=== PATIENT | female | born 1935 | race Caucasian/White ===

== ENCOUNTER → 2016-09-07 | Outpatient (CLI) | payer MEDICARE, OTHER ==
--- NOTE | 2016-09-07 16:25 | MR ---
EXAM DATE: 09/07/16 PATIENT'S AGE: 81 Patient: ILSA MURO Facility: [place], [place] : 1935 Study: MRI Shoulder Right [id number]/26/2017 10:14:58 AM Ordering Physician: Destin Irizarry Final Report: HISTORY: Right shoulder pain. Technique: Axial, sagittal oblique and coronal oblique T1, proton density and T2 fat-sat images were obtained of the right shoulder without contrast administration. Comparison: Radiographs 03/31/2016. Findings: Rotator cuff: There is full-thickness supraspinatus tendon tearing and high- grade partial to full-thickness infraspinatus tendon tearing with combined area of tearing measuring approximately 4-4.5 cm anterior/posterior by 2 cm medial/ lateral extent. There is mild supraspinatus and mild to moderate infraspinatus muscle atrophy. The distal teres minor tendon is intact. Teres minor muscle mass is maintained. Mild distal subscapularis tendinosis. Subscapularis muscle mass is maintained. . AC joint and coracoacromial arch: Advanced AC joint degenerative arthrosis. Coracoclavicular ligament is intact. There is type 2 acromial morphology. Slight spurring of the anterior lateral acromion. No os acromiale. Slight lateral downward sloping and anterior downward sloping of the acromion. The acromiohumeral interval measures approximately 5 mm. Subacromial-subdeltoid bursal fluid is nonspecific in the setting of full-thickness rotator cuff tear. The subcoracoid interval measures 9 mm. . Biceps-labral complex: Long head of the biceps tendon is intact. There is no subluxation or dislocation of the tendon from the bicipital groove nor is there significant tearing of the long head of the biceps tendon. Glenoid labrum is within normal limits for patient age. . Glenohumeral joint space: The articular cartilage assessment is mildly limited by motion artifact. Mild thinning of the articular cartilage is present. No focal defect. No intra-articular joint body. No significant malalignment. . Bones and soft tissues: No acute fracture. No avascular necrosis. No abnormality within the suprascapular or spinoglenoid notch nor within the quadrilateral space. Impression: 1. Full-thickness distal supraspinatus tendon tearing and high-grade partial to full-thickness infraspinatus tendon tearing, right shoulder. Mild supraspinatus and mild to moderate infraspinatus muscle atrophy. 2. Mild distal subscapularis tendinosis. 3. Advanced AC joint degenerative arthrosis. 4. Slight anterolateral downward sloping of the acromion. 5. Subacromial-subdeltoid bursal fluid is nonspecific in the setting of full- thickness rotator cuff tear. Dictated by Cas Kim MD @ Sep 07 2016 2:40PM (Electronic Signature) Report Signed by Proxy and Original Signed Document filed in the Medical Record. KENNY
== END ==
LOC: MW.MRI 09:12
PROVIDERS: ATTEND Student in an Organized Health Care Education/Training Program
DX: M25.511 Pain in right shoulder (principal); S46.811A Strain of other muscles, fascia and tendons at shoulder and upper arm level, right arm, initial encounter; M19.011 Primary osteoarthritis, right shoulder
CPT/HCPCS: 73221-26-RT; 73221-RT

== ENCOUNTER 2016-10-29 12:51 | Emergency (ER) | payer MEDICARE, OTHER ==
[2016-10-29] MEDS ORDERED: Sodium Chloride 0.9% 1,000 ML IV ONE (13:19)
[2016-10-29 14:12] LABS: CHLORIDE,CL 104 mmol/L (98-110); SODIUM,NA 139 mmol/L (136-146)
--- NOTE | 2016-10-29 15:28 | EDM.PDOC ---
ED HPI GENERAL MEDICAL PROBLEM - General Chief Complaint: Genitourinary Problem Stated Complaint: BLADDER INFECTION Time Seen by Provider: 10/29/16 13:15 Source of Information: Reports: Patient History Limitations: Reports: No Limitations - History of Present Illness INITIAL COMMENTS - FREE TEXT/NARRATIVE: History of present illness: 81-year-old female coming in with complaints of blood in her urine. Patient indicates that this started a couple days ago and has gotten progressively worse. Patient indicates she does have some back pain which is effusion in her back so she cannot differentiate if this is worsening pain in her back or that if it's just the same pain with an exacerbation. Review of systems: As per history of present illness and below otherwise all systems reviewed and negative. Past medical history: As per history of present illness and as reviewed below otherwise noncontributory. Surgical history: As per history of present illness and as reviewed below otherwise noncontributory. Social history: No reported history of drug or alcohol abuse. Family history: As per history of present illness and as reviewed below otherwise noncontributory. Physical exam: HEENT: Atraumatic, normocephalic, pupils reactive, negative for conjunctival pallor or scleral icterus, mucous membranes moist, throat clear, neck supple, nontender, trachea midline. Lungs: Clear to auscultation, breath sounds equal bilaterally, chest nontender. Heart: S1S2, regular, negative for clicks, rubs, or JVD. Abdomen: Soft, nondistended, nontender. Negative for masses or hepatosplenomegaly. Positive for costovertebral tenderness. Pelvis: Stable nontender. Genitourinary: Deferred. Rectal: Deferred. Extremities: Atraumatic, negative for cords or calf pain. Neurovascular unremarkable. Neuro: Awake, alert, oriented. Cranial nerves II through XII unremarkable. Cerebellum unremarkable. Motor and sensory unremarkable throughout. Exam nonfocal. Global assessment is benign save the subjective complaint noted in the history of present illness. Urine sample given with mike blood. UTI versus stones Diagnostics: [CBC, CMP, UA, CT without contrast] Therapeutics: [] Impression: [UTI] Plan: [Antibiotic] Definitive disposition and diagnosis as appropriate pending reevaluation and review of above. urinary area Pain Score (Numeric/FACES): 1 - Related Data Allergies Allergy/AdvReac Type Severity Reaction Status Date / Time acetaminophen [From [place]] Allergy Agitation Verified 10/29/16 13:09 cefaclor [Cefaclor] Allergy Rash Verified 10/29/16 13:09 celecoxib [From Celebrex] Allergy Rash Verified 10/29/16 13:09 hydrocodone bitartrate Allergy Agitation Verified 10/29/16 13:09 [From [place]] levofloxacin Allergy Other Verified 10/29/16 13:09 tramadol Allergy Hallucinati Verified 10/29/16 13:09 ons Home Meds: Home Meds HCTZ/Triamterene [Maxzide 25-37.5 MG] 0.5 tab PO DAILY 05/15/14 [History] Metoprolol Tartrate 50 mg PO BID 05/15/14 [History] Potassium Chloride 10 meq PO BID 05/15/14 [History] Aspirin [Aspirin EC] 325 mg PO BID #70 tablet.dr 07/11/15 [Rx] Docusate Sodium [Colace] 100 mg PO BID #30 capsule 07/11/15 [Rx] Acetaminophen [Tylenol] 650 mg PO Q4H PRN #0 tablet 07/16/15 [Rx] Nitrofurantoin Monohyd/M-Cryst [Macrobid 100 mg Capsule] 100 mg PO BID #20 capsule 10/29/16 [Rx] Past Medical History HEENT History: Reports: Hard of Hearing, Impaired Vision Other HEENT History: wears glasses, has bilateral hearing aides Cardiovascular History: Reports: High Cholesterol, Hypertension Respiratory History: Reports: Bronchitis, Recurrent Gastrointestinal History: Reports: None Genitourinary History: Reports: None 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: Musculoskeletal History: Reports: None Other Musculoskeletal History: states has bursitis in legs Neurological History: Reports: None Psychiatric History: Reports: None Endocrine/Metabolic History: Reports: Osteoporosis Hematologic History: Reports: None Immunologic History: Reports: None Oncologic (Cancer) History: Reports: Breast Dermatologic History: Reports: None - Infectious Disease History Infectious Disease History: Reports: Chicken Pox, Measles - Past Surgical History Head Surgeries/Procedures: Reports: None HEENT Surgical History: Reports: Cataract Surgery Respiratory Surgical History: Reports: Other (See Below) GI Surgical History: Reports: None Female Surgical History: Reports: Hysterectomy Other Female Surgeries/Procedures: right breast lumpectomy Endocrine Surgical History: Reports: None Neurological Surgical History: Reports: Spinal Fusion Musculoskeletal Surgical History: Reports: Hip Replacement Oncologic Surgical History: Reports: Lumpectomy Social & Family History - Family History Family Medical History: Noncontributory Cardiac: Reports: Hypertension Oncologic: Reports: Other (See Below) Other Oncologic Family History: brother, type unknown - Tobacco Use Smoking Status *Q: Current Every Day Smoker Years of Tobacco use: 70 Packs/Tins Daily: 0.6 Used Tobacco, but Quit: No Month Tobacco Last Used: 04/27 Second Hand Smoke Exposure: Yes - Caffeine Use Caffeine Use: Reports: Coffee - Alcohol Use Days Per Week of Alcohol Use: 2 Number of Drinks Per Day: 2 Total Drinks Per Week: 4 - Recreational Drug Use Recreational Drug Use: No Drug Use in Last 12 Months: No ED ROS GENERAL - Review of Systems Review Of Systems: See Below (History of present illness) ED EXAM, GI/ABD - Physical Exam Exam: See Below (See history of present illness) Course - Vital Signs Last Recorded V/S: Last Vital Signs Temp 35.9 C 10/29/16 13:09 Pulse 75 10/29/16 14:19 Resp 16 10/29/16 14:19 BP 118/58 L 10/29/16 14:19 Pulse Ox 92 L 10/29/16 14:19 - Orders/Labs/Meds Orders: Active Orders 24 hr Category Date Time Status Abdomen Pelvis wo Cont [CT] Stat Exams 10/29/16 13:19 Ordered Labs: Laboratory Tests 10/29/16 10/29/16 10/29/16 Range/Units 13:21 13:35 13:35 WBC 10.84 (4.0-11.0) K/uL RBC 4.36 (4.30-5.90) M/uL Hgb 14.2 (12.0-16.0) g/dL Hct 43.1 (36.0-46.0) % MCV 98.9 H (80.0-98.0) fL MCH 32.6 H (27.0-32.0) pg MCHC 32.9 (31.0-37.0) g/dL RDW Std Deviation 47.5 (28.0-62.0) fl RDW Coeff of [place] 13 (11.0-15.0) % Plt Count 355 (150-400) K/uL MPV 9.30 (7.40-12.00) fL Neut % (Auto) 73.2 (48.0-80.0) % Lymph % (Auto) 18.0 (16.0-40.0) % [place] % (Auto) 6.4 (0.0-15.0) % Eos % (Auto) 2.0 (0.0-7.0) % Baso % (Auto) 0.4 (0.0-1.5) % Neut # (Auto) 7.9 H (1.4-5.7) K/uL Lymph # (Auto) 2.0 (0.6-2.4) K/uL [place] # (Auto) 0.7 (0.0-0.8) K/uL Eos # (Auto) 0.2 (0.0-0.7) K/uL Baso # (Auto) 0.0 (0.0-0.1) K/uL Nucleated RBC % 0.0 /100WBC Nucleated RBCs # 0 K/uL Sodium 139 (136-146) mmol/L Potassium 3.8 (3.5-5.1) mmol/L Chloride 104 (98-110) mmol/L Carbon Dioxide 24 (21-31) mmol/L BUN 25 H (6.0-23.0) mg/dL Creatinine 0.9 (0.6-1.5) mg/dL Est Cr Clr Drug Dosing 43.05 mL/min Estimated GFR (MDRD) > 60.0 ml/min Glucose 88 (60-110) mg/dL Calcium 9.8 (8.8-10.8) mg/dL Total Bilirubin 0.3 (0.1-1.5) mg/dL AST 17 (5-40) IU/L ALT 12 (8-54) IU/L Alkaline Phosphatase 66 (40-150) Total Protein 7.5 (6.0-8.0) g/dL Albumin 4.5 (3.4-4.8) g/dL Globulin 3.0 (2.0-3.5) g/dL Albumin/Globulin Ratio 1.5 (1.3-2.8) Urine Color [place] Urine Appearance BLOODY Urine pH 5.5 (5.0-8.0) Ur Specific [place] 1.020 (1.001-1.035) Urine Protein 100 (NEGATIVE) mg/dL Urine Glucose (UA) NEGATIVE (NEGATIVE) mg/dL Urine Ketones TRACE H (NEGATIVE) mg/dL Urine Occult Blood LARGE H (NEGATIVE) Urine Nitrite POSITIVE H (NEGATIVE) Urine Bilirubin SMALL H (NEGATIVE) Urine Ictotest NEGATIVE Urine Urobilinogen 1.0 (<2.0) EU/dL Ur Leukocyte Esterase LARGE (NEGATIVE) Urine RBC TOO NUMEROUS TO CT (0-2/HPF) Urine WBC 120-150 (0-5/HPF) Ur Epithelial Cells FEW (NONE-FEW) Urine Bacteria FEW (NEGATIVE) Meds: Medications Discontinued Medications Generic Name Dose Route Start Last Admin Trade Name [place] PRN Reason Stop Dose Admin Sodium Chloride 1,000 mls @ 999 mls/hr 10/29/16 13:19 10/29/16 14:18 Normal Saline IV 10/29/16 14:19 999 mls/hr STAT ONE Administration Departure - Departure Time of Disposition: 15:27 Disposition: Home, Self-Care 01 Condition: Good Clinical Impression: UTI, Urinary tract infectious disease - Discharge Information Prescriptions: Nitrofurantoin Monohyd/M-Cryst [Macrobid 100 mg Capsule] 100 mg PO BID #20 capsule Instructions: Urinary Tract Infection, Adult, [id number] Forms: ED Department Discharge Additional Instructions: The following information is given to patients seen in the emergency department who are being discharged to home. This information is to outline your options for follow-up care. We provide all patients seen in our emergency department with a follow-up referral. The need for follow-up, as well as the timing and circumstances, are variable depending upon the specifics of your emergency department visit. If you don't have a primary care physician on staff, we will provide you with a referral. We always advise you to contact your personal physician following an emergency department visit to inform them of the circumstance of the visit and for follow-up with them and/or the need for any referrals to a consulting specialist. The emergency department will also refer you to a specialist when appropriate. This referral assures that you have the opportunity for follow-up care with a specialist. All of these measure are taken in an effort to provide you with optimal care, which includes your follow-up. Under all circumstances we always encourage you to contact your private physician who remains a resource for coordinating your care. When calling for follow-up care, please make the office aware that this follow-up is from your recent emergency room visit. If for any reason you are refused follow-up, please contact the [facility] Emergency Department at and asked to speak to the emergency department charge nurse. Take medication as directed While the primary care provider in 1-2 days Return to ED as needed as discussed - My Orders Last 24 Hours: My Active Orders 10/29/16 13:19 Abdomen Pelvis wo Cont [CT] Stat - Assessment/Plan Last 24 Hours: My Active Orders 10/29/16 13:19 Abdomen Pelvis wo Cont [CT] Stat
[2016-10-29 15:48] VITALS: BP 142/65
--- NOTE | 2016-10-31 11:51 | CT ---
EXAM DATE: 10/29/16 PATIENT'S AGE: 81 Patient: ILSA MURO Facility: [place], [place] Site . Site : 1935 Study: CT Abdomen/Pelvis [id number] 2:18:14 PM Ordering Physician: Doctor Peralta Final Report: Indication: Burning. Technique: Contiguous axial images were obtained from the domes of the diaphragm through the pubic symphysis. Intravenous and oral contrast were not administered as the study was performed according to stone protocol. 3D rendering, including image post processing was performed on an independent work station. Comparison: None. Findings: There is no hydronephrosis nor hydroureter. No stones are identified in the unenhanced kidneys, ureters or urinary bladder. However, beam hardening artifact from a right hip prosthesis limits evaluation of the lower pelvis. The unenhanced liver, gallbladder, spleen, adrenal glands and pancreas are unremarkable. There is no abdominal or pelvic ascites. Scattered diverticula are noted in the descending colon and sigmoid colon. Marked atherosclerotic changes are noted the abdominal aorta and common iliac arteries but there is no aneurysmal dilatation. Degenerative changes are noted of the lumbar spine and sacroiliac joints. Visualized lower lungs are unremarkable. Impression: 1. No CT evidence of hydronephrosis, hydroureter or stones in the kidneys, ureter or urinary bladder. 2. Diverticulosis without CT evidence of diverticulitis. Please note that all CT scans at this facility use dose modulation, iterative reconstruction, and/or weight-based dosing when appropriate to reduce radiation dose to as low as reasonably achievable. Dictated by Sarah Aaron MD @ Oct 29 2016 3:07PM (Electronic Signature) Report Signed by Proxy. [facility] HOSPITALJerry
== END 2016-10-29 15:45 | disposition home or self-care (01) ==
LOC: MW.ED 12:51
DX: N39.0 Urinary tract infection, site not specified (principal); H54.7 Unspecified visual loss; E78.00 Pure hypercholesterolemia, unspecified; I10 Essential (primary) hypertension; M19.90 Unspecified osteoarthritis, unspecified site; F17.210 Nicotine dependence, cigarettes, uncomplicated; Z88.8 Allergy status to other drugs, medicaments and biological substances; Z88.5 Allergy status to narcotic agent; Z79.899 Other long term (current) drug therapy; Z79.82 Long term (current) use of aspirin; Z98.49 Cataract extraction status, unspecified eye; Z96.643 Presence of artificial hip joint, bilateral; Z88.1 Allergy status to other antibiotic agents; Z90.710 Acquired absence of both cervix and uterus
CPT/HCPCS: 74176; 80053; 81001; 85025; 96360; 99284; J7040

== ENCOUNTER 2019-07-02 18:41 | Emergency (ER) | payer MEDICARE, OTHER ==
[2019-07-02 18:52] VITALS: BP 155/54; PULSE 63
[2019-07-02] MEDS ORDERED: Diphtheria,Pertussis(Acell),Tetanus Vaccine 0.5 ML Syringe IM ONE ×2 (19:01→19:51)
--- NOTE | 2019-07-02 19:04 | EDM.PDOC ---
ED HPI GENERAL MEDICAL PROBLEM - General Chief Complaint: General Stated Complaint: EMS ARRIVAL RIB & HIP PAIN Time Seen by Provider: 07/02/19 19:01 Source of Information: Reports: Patient, EMS - History of Present Illness INITIAL COMMENTS - FREE TEXT/NARRATIVE: The patient is an 84-year-old female in assisted living who came to the ER secondary to a witnessed slip and fall. The patient slipped on the floor and fell down to her right side pinning her right arm underneath her. She could not get up but she was able to be helped up and is able to stand. She did not hit her head. She feels sore all over but her main complaints are that her right hand hurts and she has a small skin tear on the dorsal aspect of her distal right forearm. She also has some right rib pain but no shortness of breath. No loss of range of motion of any of the extremities, no neck pain, no other acute complaints. right rib Pain Score (Numeric/FACES): 10 right wrist Pain Score (Numeric/FACES): 10 - Related Data Allergies Allergy/AdvReac Type Severity Reaction Status Date / Time acetaminophen [From [place]] Allergy Agitation Verified 05/19/18 11:42 cefaclor [Cefaclor] Allergy Rash Verified 05/19/18 11:42 celecoxib [From Celebrex] Allergy Rash Verified 05/19/18 11:42 hydrocodone bitartrate Allergy Agitation Verified 05/19/18 11:42 [From [place]] levofloxacin Allergy Other Verified 05/19/18 11:42 sulfadiazine Allergy Other Verified 07/02/19 18:49 tramadol Allergy Hallucinati Verified 05/19/18 11:42 ons Home Meds: Home Meds HCTZ/Triamterene [Maxzide 25-37.5 MG] 0.5 tab PO DAILY 05/15/14 [History] Metoprolol Tartrate 50 mg PO BID 05/15/14 [History] Potassium Chloride 10 meq PO BID 05/15/14 [History] Aspirin [Aspirin EC] 325 mg PO BID #70 tablet. 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: Musculoskeletal History: Reports: None Other Musculoskeletal History: states has bursitis in legs Neurological History: Reports: None Psychiatric History: Reports: None Endocrine/Metabolic History: Reports: Osteoporosis Hematologic History: Reports: None Immunologic History: Reports: None Oncologic (Cancer) History: Reports: Breast Dermatologic History: Reports: None - Infectious Disease History Infectious Disease History: Reports: Measles - Past Surgical History Head Surgeries/Procedures: Reports: None HEENT Surgical History: Reports: Cataract Surgery Respiratory Surgical History: Reports: Other (See Below) GI Surgical History: Reports: None Female Surgical History: Reports: Hysterectomy Other Female Surgeries/Procedures: right breast lumpectomy Endocrine Surgical History: Reports: None Neurological Surgical History: Reports: Spinal Fusion Musculoskeletal Surgical History: Reports: Hip Replacement Oncologic Surgical History: Reports: Lumpectomy Social & Family History - Family History Family Medical History: Noncontributory Cardiac: Reports: Hypertension Oncologic: Reports: Other (See Below) Other Oncologic Family History: brother, type unknown - Tobacco Use Smoking Status *Q: Light Tobacco Smoker Years of Tobacco use: 60 Packs/Tins Daily: 0.1 - Caffeine Use Caffeine Use: Reports: Coffee - Recreational Drug Use Recreational Drug Use: No ED ROS GENERAL - Review of Systems Review Of Systems: See Below (Positive for right hand pain, positive for skin tear, negative for headache, negative for neck pain, negative for weakness, all other Positives and pertinent negatives as per HPI. All other pertinent systems were reviewed and are negative) ED EXAM, GENERAL - Physical Exam Exam: See Below Free Text/Narrative:: Constitutional: Elderly, no acute distress, Non-toxic appearance. HEENT: Normocephalic, Atraumatic, EOMI Neck: Normal range of motion, No stridor, trachea midline, no tenderness Respiratory: No respiratory distress, No tachypnea Cardiovascular: Deferred Gastrointestinal: Deferred Genital / Urinary: Deferred Musculoskeletal: All four extremities present and atraumatic with the exception of a small amount of ecchymosis and tenderness along the right fifth metacarpal , there is also a small superficial skin tear on the dorsal aspect of the distal right forearm, no wrist deformity, no tenderness, full range of motion is noted in all the joints Back: FROM Integument: Warm, Dry, Color is ethnicity appropriate, No rash. Neuro: Alert, Awake, No focal deficits noted Psych: Affect, Judgement, mood normal Course - Vital Signs Text/Narrative:: Chest and rib x-rays were reviewed and interpreted by me -no fractures, no pleural effusion, no pneumothorax or any acute pathology Right hand x-ray was interpreted by radiology as a possible fracture at the base of the fifth metacarpal which clinically is where the patient has a lot of tenderness. Ulnar gutter splint on the right hand will be placed, tetanus was updated, and the patient will be stable for discharge. Last Recorded V/S: Last Vital Signs Temp 36.6 C 07/02/19 18:49 Pulse 63 07/02/19 18:49 Resp 20 07/02/19 18:49 BP 155/54 H 07/02/19 18:49 Pulse Ox 100 07/02/19 18:49 - Orders/Labs/Meds Orders: Active Orders 24 hr Category Date Time Status Vaccines to be Administered [RC] PER UNIT ROUTINE Care 07/02/19 19:01 Active Vaccines to be Administered [RC] PER UNIT ROUTINE Care 07/02/19 19:51 Active Vaccines to be Administered [RC] PER UNIT ROUTINE Care 07/02/19 19:56 Active Meds: Medications Discontinued Medications Generic Name Dose Route Start Last Admin Trade Name Asaelq PRN Reason Stop Dose Admin Diphtheria/Tetanus/Acell Pertussis 0.5 ml 07/02/19 19:01 07/02/19 19:50 Adacel IM 07/02/19 19:02 Not Given .ONCE ONE Diphtheria/Tetanus/Acell Pertussis 0.5 ml 07/02/19 19:51 07/02/19 19:56 Boostrix IM 07/02/19 19:52 Not Given .ONCE ONE Tetanus/Diphtheria Toxoids 0.5 ml 07/02/19 19:56 07/02/19 20:02 Tenivac IM 07/02/19 19:57 0.5 ml .ONCE ONE Administration Departure - Departure Time of Disposition: 20:11 Disposition: Home, Self-Care 01 Clinical Impression: Fall, Fracture of fifth metacarpal bone of right hand, Skin tear of right upper extremity - Discharge Information Instructions: Cast or Splint Care, Adult, [id number], Skin Tear Care, Easy-to -Read, Metacarpal Fracture Referrals: Giancarlo Gaytan DO [Physician] - Forms: ED Department Discharge Sepsis Event Note - Evaluation Sepsis Screening Result: No Definite Risk - Focused Exam Vital Signs: Vital Signs Temp Pulse Resp BP Pulse Ox 07/02/19 18:49 36.6 C 63 20 155/54 H 100 Date Exam was Performed: 07/02/19 Time Exam was Performed: 20:10 - My Orders Last 24 Hours: My Active Orders 07/02/19 19:01 Vaccines to be Administered [RC] PER UNIT ROUTINE 07/02/19 19:51 Vaccines to be Administered [RC] PER UNIT ROUTINE 07/02/19 19:56 Vaccines to be Administered [RC] PER UNIT ROUTINE - Assessment/Plan Last 24 Hours: My Active Orders 07/02/19 19:01 Vaccines to be Administered [RC] PER UNIT ROUTINE 07/02/19 19:51 Vaccines to be Administered [RC] PER UNIT ROUTINE 07/02/19 19:56 Vaccines to be Administered [RC] PER UNIT ROUTINE
--- NOTE | 2019-07-02 19:45 | CR ---
Chest and right ribs: Frontal view of the chest was obtained as well as 3 views of the right ribs. Comparison: No previous study. Heart size is normal. Tortuous thoracic aorta is seen. 2 surgical clips are seen within the left AP window. Linear density is noted with the right lung base either due to scarring or atelectasis. Calcified nodule is noted within the right chest believed to represent granuloma. Lungs otherwise are clear. 2 surgical clips are seen within the right axillary region. Scattered disc space narrowing and mild scoliosis is noted within the spine with endplate spurring. No definite fracture is appreciated within the right ribs. Impression: 1. No discrete right-sided rib fracture. Nondisplaced fracture could be missed due to osteopenia. 2. Slight atelectasis or scarring within the right lung base. 3. Other findings believed to be incidental. Nothing acute is suspected. Diagnostic code #2 This report was dictated in [place] Standard Time
--- NOTE | 2019-07-02 19:45 | CR ---
Right hand: 3 views of the right hand were obtained. Comparison: No previous study. Fracture is suspected within the base of the 5th metacarpal. Alignment is anatomic as seen on this study. Mild joint space narrowing is noted off the distal navicular bone. Bony structures are slightly osteopenic. Joint space narrowing is also noted within the thumb involving the MTP joint. No additional fracture or other bony abnormality is appreciated. Impression: 1. Degenerative change. 2. Bony structures are osteopenic. 3. Nondisplaced fracture is suspected within the base of the right 5th metacarpal. Diagnostic code #3 This report was dictated in [place] Standard Time
[2019-07-02] MEDS ORDERED: Diphtheria/Tetanus Toxoids,Adult (Td) 0.5 ML Syringe IM ONE (19:56)
== END 2019-07-02 20:48 | disposition home or self-care (01) ==
LOC: MW.ED 18:41
DX: S62.306A Unspecified fracture of fifth metacarpal bone, right hand, initial encounter for closed fracture (principal); S51.811A Laceration without foreign body of right forearm, initial encounter; Z23 Encounter for immunization; I10 Essential (primary) hypertension; E78.00 Pure hypercholesterolemia, unspecified; J44.9 Chronic obstructive pulmonary disease, unspecified; F17.210 Nicotine dependence, cigarettes, uncomplicated; Z88.8 Allergy status to other drugs, medicaments and biological substances; Z88.5 Allergy status to narcotic agent; Z79.899 Other long term (current) drug therapy; Z79.82 Long term (current) use of aspirin; W01.0XXA Fall on same level from slipping, tripping and stumbling without subsequent striking against object, initial encounter
CPT/HCPCS: 29125; 71101-26-RT; 71101-RT; 73130-26-RT; 73130-RT; 90471; 90714; 99283-25

== ENCOUNTER 2020-01-18 09:52 | Inpatient (IN) | payer MEDICARE, OTHER ==
[2020-01-18] MEDS ORDERED: Meclizine 25 MG Tab PO ONE (10:00)
[2020-01-18] MEDS ORDERED: Sodium Chloride 0.9% 10 ML Syringe FLUSH PRN (10:00)
[2020-01-18] MEDS ORDERED: Sodium Chloride 0.9% 2.5 ML Syringe FLUSH PRN (10:00)
--- NOTE | 2020-01-18 10:14 | EDM.PDOC ---
ED HPI GENERAL MEDICAL PROBLEM - General Chief Complaint: Neuro Symptoms/Deficits Stated Complaint: Dizziness Time Seen by Provider: 01/18/20 09:57 Source of Information: Reports: Patient, Long Term Records History Limitations: Reports: No Limitations - History of Present Illness INITIAL COMMENTS - FREE TEXT/NARRATIVE: HISTORY AND PHYSICAL: History of present illness: Patient is an 84-year-old female who presents to the emergency room via ambulance with complaints of dizziness. Patient is a resident of an assisted living group home, otherwise is able to perform her ADLs (per patient statement). States over the past 3 days she has had dizziness when trying to sit up, especially in the morning. Dizziness is aggravated by turning her head to the right side and alleviated with rest. Patient denies any fever, chills, headache, change in vision, syncope or near syncope. Denies any weakness, confusion, slurred speech or deficits. Denies any chest pain, back pain, shortness of breath or cough. Denies any GI or symptoms. Patient has been eating and drinking appropriately. No new injury, trauma or falls. Review of systems: As per history of present illness and below otherwise all systems reviewed and negative. Past medical history: As per history of present illness and as reviewed below otherwise noncontributory. Surgical history: As per history of present illness and as reviewed below otherwise noncontributory. Social history: See social history for further information Family history: As per history of present illness and as reviewed below otherwise noncontributory. Physical exam: General: Well developed and well nourished. Alert and orientated x 3, history of dementia. Nontoxic in appearance and in no acute distress. Vital signs are s table and have been reviewed by me. Nursing notes were reviewed by me. HEENT: Atraumatic, normocephalic, pupils equal and reactive bilaterally, negative for conjunctival pallor or scleral icterus, mucous membranes moist, TMs normal bilaterally, throat clear, neck supple, nontender, trachea midline. No drooling or trismus noted. No meningeal signs. No hot potato voice noted. Lungs: Clear to auscultation, breath sounds equal bilaterally, chest nontender. Normal work of breathing, no accessory muscles used. Heart: S1S2, regular rate and rhythm without overt murmur Abdomen: Soft, nondistended, nontender. Negative for masses or hepatosplenomegaly. Negative for costovertebral tenderness. Skin: Intact, warm, dry. No lesions or rashes noted. Hematologic: No petechiae or purpra. Mucosa appropriate color and normal nail bed color and refill. Extremities: Atraumatic, moves all extremities per self without difficulty or deficits, negative for cords or calf pain. Neurovascular unremarkable. Neuro: Awake, alert, oriented. Cranial nerves II through XII unremarkable. Cerebellum unremarkable. Motor and sensory unremarkable throughout. Exam nonfocal. Notes: Patient does have a history of dementia, recently had an MRI of the brain on 01/02/2020: No evidence of acute intracranial abnormalities. Advance supratentorial white matter changes are nonspecific but statistically most related to small vessel ischemic disease. Moderate cerebral volume loss. Chronic marquez in the bilateral caudate nuclei. 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 Differential considerations include meningioma and schewannoma. No significant change on this noncontrast study. No mass-effect on the left brachium pontis. NIH: 0. GCS: 15. No suspicion of stroke. On several different occasions upon entering the patient's room she has different complaints and is verbally aggressive with staff. Nursing staff had to assist patient to bathroom as she was unable to walk by herself, assist x2. She complains of generalized weakness but states this is a normal variance for her over the past several years. On a second encounter with the patient she does not recall the staff that has been in the room with her and she wants her IV taken out and to return home. Chest x-ray shows no acute findings. Lab work is unremarkable. Patient is unable to get up out of bed without assist of 2. Nursing staff did call the [facility] who states she typically does ambulate on her own without wheelchair, cane or a walker. It was just this morning that they had went to check on her and noted she was not able to get up out of bed. That is when they called the ambulance. I did talk with the patient about how she felt she would be able to get around her apartment and she states "I do not know". I feel she needs to be admitted for reevaluation and possible placement to higher level of group home assistance. Dr Garcia was consulted on this case. Agreeable to keeping this patient for further care and management. Patient is very agitated and yelling at staff and trying to get out of bed, but is unable due to weakness. Ativan has been given now, and close 1:1 care given by nurses at this time. Diagnostics: CBC, CMP, troponin, UA, EKG, chest x-ray, Head CT Therapeutics: Meclizine, NS at 100 mls/hr Impression: BPPV Weakness Self care deficet History of dementia Plan: Inpatient admission to telemetry Definitive disposition and diagnosis as appropriate pending reevaluation and review of above. - Related Data Allergies Allergy/AdvReac Type Severity Reaction Status Date / Time acetaminophen [From [place]] Allergy Agitation Verified 01/18/20 09:57 cefaclor [Cefaclor] Allergy Rash Verified 01/18/20 09:57 celecoxib [From Celebrex] Allergy Rash Verified 01/18/20 09:57 hydrocodone bitartrate Allergy Agitation Verified 01/18/20 09:57 [From [place]] levofloxacin Allergy Other Verified 01/18/20 09:57 sulfadiazine Allergy Other Verified 01/18/20 09:57 tramadol Allergy Hallucinati Verified 01/18/20 09:57 ons Home Meds: Home Meds Metoprolol Tartrate 25 mg PO DAILY 05/15/14 [History] Potassium Chloride 10 meq PO DAILY 05/15/14 [History] Acetaminophen [Tylenol] 500 mg PO Q6H PRN 01/18/20 [History] Albuterol [Proair HFA] 2 puff INH Q4HR PRN 01/18/20 [History] Carboxymethylcellulose Sodium [Artificial Tears] 1 drop EYEBOTH Q6H PRN 01/18/20 [History] Cyanocobalamin (Vitamin B12) [Vitamin B12] 1,000 mcg PO DAILY 01/18/20 [History] Donepezil HCl 10 mg PO BEDTIME 01/18/20 [History] FLUoxetine HCl [Prozac] 20 mg PO DAILY 01/18/20 [History] Loperamide HCl [Imodium A-D] 2 mg PO DAILY PRN MDD 8MG 01/18/20 [History] Mag Hydrox/Aluminum Hyd/Simeth [Maalox Maximum Strength Susp] 30 ml PO Q6H PRN 01/18/20 [History] Magnesium Hydroxide [Milk of Magnesia] 30 ml PO DAILY PRN 01/18/20 [History] Multivitamin [Poly-Vitamin] 2 each PO DAILY 01/18/20 [History] Omeprazole 40 mg PO ACBREAKFAST 01/18/20 [History] Rosuvastatin Calcium 5 mg PO .WED 01/18/20 [History] guaiFENesin 5 ml PO Q4H PRN 01/18/20 [History] hydroCHLOROthiazide [Hydrochlorothiazide] 25 mg PO DAILY 01/18/20 [History] oxyCODONE HCl/Acetaminophen [Oxycodon-Acetaminophen 2.5-300] 1 each PO Q6H PRN 01/18/20 [History] Past Medical History HEENT History: Reports: Hard of Hearing, Impaired Vision Other HEENT History: wears glasses, has bilateral hearing aides Cardiovascular History: Reports: High Cholesterol, Hypertension Respiratory History: Reports: Bronchitis, Recurrent, COPD Gastrointestinal History: Reports: None Genitourinary History: Reports: None 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: Musculoskeletal History: Reports: None Other Musculoskeletal History: states has bursitis in legs Neurological History: Reports: None Psychiatric History: Reports: None Endocrine/Metabolic History: Reports: Osteoporosis Hematologic History: Reports: None Immunologic History: Reports: None Oncologic (Cancer) History: Reports: Breast Dermatologic History: Reports: None - Infectious Disease History Infectious Disease History: Reports: Measles - Past Surgical History Head Surgeries/Procedures: Reports: None HEENT Surgical History: Reports: Cataract Surgery Respiratory Surgical History: Reports: Other (See Below) GI Surgical History: Reports: None Female Surgical History: Reports: Hysterectomy Other Female Surgeries/Procedures: right breast lumpectomy Endocrine Surgical History: Reports: None Neurological Surgical History: Reports: Spinal Fusion Musculoskeletal Surgical History: Reports: Hip Replacement Oncologic Surgical History: Reports: Lumpectomy Social & Family History - Family History Family Medical History: Noncontributory Cardiac: Reports: Hypertension Oncologic: Reports: Other (See Below) Other Oncologic Family History: brother, type unknown - Caffeine Use Caffeine Use: Reports: Coffee ED ROS GENERAL - Review of Systems Review Of Systems: Comprehensive ROS is negative, except as noted in HPI. ED EXAM, GENERAL - Physical Exam Exam: See Below (See dictation) Course - Vital Signs Last Recorded V/S: Last Vital Signs Temp 96.7 F L 01/18/20 09:57 Pulse 66 01/18/20 12:26 Resp 16 01/18/20 12:26 BP 109/55 L 01/18/20 12:26 Pulse Ox 98 01/18/20 12:26 - Orders/Labs/Meds Orders: Active Orders 24 hr Category Date Time Status EKG Documentation Completion [RC] STAT Care 01/18/20 09:58 Active CORONAVIRUS COVID-19 ENOC [MOLEC] Stat Lab 01/18/20 12:04 Received Sodium Chloride 0.9% [Saline Flush] Med 01/18/20 10:00 Active 10 ml FLUSH ASDIRECTED PRN Sodium Chloride 0.9% [Saline Flush] Med 01/18/20 10:00 Active 2.5 ml FLUSH ASDIRECTED PRN Saline Lock Insert [OM.PC] Stat Oth 01/18/20 10:01 Ordered Medication Orders Sodium Chloride (Saline Flush) 10 ml FLUSH ASDIRECTED PRN PRN Reason: Keep Vein Open Last Admin: 01/18/20 10:18 Dose: 10 ml Documented by: SUSAN Sodium Chloride (Saline Flush) 2.5 ml FLUSH ASDIRECTED PRN PRN Reason: Keep Vein Open Last Admin: 01/18/20 10:18 Dose: 2.5 ml Documented by: SUSAN Labs: Laboratory Tests 01/18/20 01/18/20 01/18/20 Range/Units 10:15 10:15 10:40 WBC 5.75 (4.0-11.0) K/uL RBC 4.33 (4.30-5.90) M/uL Hgb 13.4 (12.0-16.0) g/dL Hct 42.3 (36.0-46.0) % MCV 97.7 (80.0-98.0) fL MCH 30.9 (27.0-32.0) pg MCHC 31.7 (31.0-37.0) g/dL RDW Std Deviation 44.9 (28.0-62.0) fl RDW Coeff of [place] 13 (11.0-15.0) % Plt Count 294 (150-400) K/uL MPV 9.10 (7.40-12.00) fL Neut % (Auto) 58.8 (48.0-80.0) % Lymph % (Auto) 29.2 (16.0-40.0) % Larue % (Auto) 7.1 (0.0-15.0) % Eos % (Auto) 4.0 (0.0-7.0) % Baso % (Auto) 0.9 (0.0-1.5) % Neut # (Auto) 3.4 (1.4-5.7) K/uL Lymph # (Auto) 1.7 (0.6-2.4) K/uL Larue # (Auto) 0.4 (0.0-0.8) K/uL Eos # (Auto) 0.2 (0.0-0.7) K/uL Baso # (Auto) 0.1 (0.0-0.1) K/uL Nucleated RBC % 0.0 /100WBC Nucleated RBCs # 0 K/uL Sodium 139 (136-145) mmol/L Potassium 4.0 (3.5-5.1) mmol/L Chloride 102 (98-107) mmol/L Carbon Dioxide 28.7 (21.0-32.0) mmol/L BUN 23 H (7.0-18.0) mg/dL Creatinine 1.1 H (0.6-1.0) mg/dL Est Cr Clr Drug Dosing 33.46 mL/min Estimated GFR (MDRD) 47.4 ml/min Glucose 97 (74-106) mg/dL Calcium 9.4 (8.5-10.1) mg/dL Total Bilirubin 0.4 (0.2-1.0) mg/dL AST 15 (15-37) IU/L ALT 17 (14-63) IU/L Alkaline Phosphatase 66 (46-116) U/L Troponin I < 0.050 (0.000-0.056) ng/mL Total Protein 7.0 (6.4-8.2) g/dL Albumin 3.7 (3.4-5.0) g/dL Globulin 3.3 (2.6-4.0) g/dL Albumin/Globulin Ratio 1.1 (0.9-1.6) Urine Color YELLOW Urine Appearance CLEAR Urine pH 6.5 (5.0-8.0) Ur Specific [place] 1.010 (1.001-1.035) Urine Protein NEGATIVE (NEGATIVE) mg/dL Urine Glucose (UA) NEGATIVE (NEGATIVE) mg/dL Urine Ketones NEGATIVE (NEGATIVE) mg/dL Urine Occult Blood NEGATIVE (NEGATIVE) Urine Nitrite NEGATIVE (NEGATIVE) Urine Bilirubin NEGATIVE (NEGATIVE) Urine Urobilinogen 0.2 (<2.0) EU/dL Ur Leukocyte Esterase NEGATIVE (NEGATIVE) Meds: Medications Generic Name Dose Route Start Last Admin Trade Name Freq PRN Reason Stop Dose Admin Sodium Chloride 10 ml 01/18/20 10:00 01/18/20 10:18 Saline Flush FLUSH 10 ml ASDIRECTED PRN Administration Keep Vein Open Sodium Chloride 2.5 ml 01/18/20 10:00 01/18/20 10:18 Saline Flush FLUSH 2.5 ml ASDIRECTED PRN Administration Keep Vein Open Discontinued Medications Generic Name Dose Route Start Last Admin Trade Name Freq PRN Reason Stop Dose Admin Lorazepam 0.25 mg 01/18/20 12:28 01/18/20 12:33 Ativan IVPUSH 01/18/20 12:29 0.25 mg ONETIME ONE Administration Lorazepam Confirm 01/18/20 12:30 Ativan Administered 01/18/20 12:31 Dose 2 mg .ROUTE .STK-MED ONE Meclizine HCl 25 mg 01/18/20 10:00 01/18/20 10:13 Antivert PO 01/18/20 10:01 25 mg ONETIME ONE Administration Departure - Departure Time of Disposition: 11:40 Disposition: Admitted As Inpatient 67 Clinical Impression: Weakness, At risk for self care deficit, History of dementia BPPV (benign paroxysmal positional vertigo) Qualifiers: Laterality: right Qualified Code(s): H81.11 - Benign paroxysmal vertigo, right ear - Discharge Information Sepsis Event Note (ED) - Focused Exam Vital Signs: Vital Signs Temp Pulse Resp BP Pulse Ox 01/18/20 10:51 78 17 101/77 96 01/18/20 10:27 71 18 160/59 H 96 01/18/20 09:57 96.7 F L 63 16 151/73 H 97 - My Orders Last 24 Hours: My Active Orders 01/18/20 09:58 EKG Documentation Completion [RC] STAT 01/18/20 10:00 Sodium Chloride 0.9% [Saline Flush] 10 ml FLUSH ASDIRECTED PRN Sodium Chloride 0.9% [Saline Flush] 2.5 ml FLUSH ASDIRECTED PRN 01/18/20 10:01 Saline Lock Insert [OM.PC] Stat 01/18/20 12:04 CORONAVIRUS COVID-19 ENOC [MOLEC] Stat - Assessment/Plan Last 24 Hours: My Active Orders 01/18/20 09:58 EKG Documentation Completion [RC] STAT 01/18/20 10:00 Sodium Chloride 0.9% [Saline Flush] 10 ml FLUSH ASDIRECTED PRN Sodium Chloride 0.9% [Saline Flush] 2.5 ml FLUSH ASDIRECTED PRN 01/18/20 10:01 Saline Lock Insert [OM.PC] Stat 01/18/20 12:04 CORONAVIRUS COVID-19 ENOC [MOLEC] Stat
[2020-01-18 10:51] LABS: BLOOD UREA NITROGEN,BUN 23 mg/dL (7.0-18.0); CARBON DIOXIDE,CO2 28.7 mmol/L (21.0-32.0); CHLORIDE,CL 102 mmol/L (98-107); GLUCOSE RANDOM 97 mg/dL (74-106); SODIUM,NA 139 mmol/L (136-145)
--- NOTE | 2020-01-18 11:14 | CR ---
Dizziness. Portable chest. Comparison chest x-ray 07/14/2015. Findings: Normal cardiac mediastinal silhouette. Lungs are clear. No acute airspace or interstitial process. No effusion.no pneumothorax. Dictated by Candy Cuadra MD @ Jan 18 2020 11:12AM Signed by Dr. Candy Cuadra @ Jan 18 2020 11:12AM
--- NOTE | 2020-01-18 11:30 | CT ---
INDICATION: Dizziness TECHNIQUE: CT of the head without contrast. Coronal and sagittal reformats. Bone and soft tissue algorithms. COMPARISON: MRI 01/02/2020 FINDINGS: No acute intracranial hemorrhage or extra-axial collection. No evidence of acute cortical infarction. There is a incidental calcification along the right precentral sulcus that may represent small chronic calcific embolus. There is no evidence of adjacent infarct. 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 No mass effect or midline shift. Mild generalized cerebral/cerebellar parenchymal volume loss. Moderate regions of decreased attenuation within the periventricular and subcortical white matter of both cerebral hemispheres most likely reflects chronic microvascular ischemic disease and age related change in this patient. Vascular calcifications within the carotid siphons. Orbital contents are normal. No calvarial fractures. No lytic or sclerotic osseous lesions within the calvarium or skull base. Scalp and other imaged soft tissue structures are normal. Mastoid air cells are clear. Mild polypoid mucosal thickening left sphenoid sinus. IMPRESSION: 1. No acute intracranial abnormality. 2. 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 3. Chronic microangiopathic white matter changes and parenchymal volume loss. Please note that all CT scans at this facility use dose modulation, iterative reconstruction, and/or weight-based dosing when appropriate to reduce radiation dose to as low as reasonably achievable. Dictated by Meliton Cameron MD @ Jan 18 2020 11:23AM Signed by Dr. Meliton Cameron @ Jan 18 2020 11:28AM
[2020-01-18] MEDS ORDERED: LORazepam 2 MG/ML SDV IVPUSH ONE (12:28)
[2020-01-18] MEDS ORDERED: LORazepam 2 MG/ML SDV ONE (12:30)
[2020-01-18] MEDS ORDERED: Loperamide 2 MG Cap PO PRN (13:51)
[2020-01-18] MEDS ORDERED: Acetaminophen 500 MG Tab PO PRN (13:51)
[2020-01-18] MEDS ORDERED: guaiFENesin 100 MG/5 ML Soln 5 ML UD Cup PO PRN (13:51)
[2020-01-18] MEDS ORDERED: Albuterol HFA 18 Gm Inhaler INH PRN (13:51)
[2020-01-18] MEDS ORDERED: Aluminum Hydroxide/Magnesium Hydroxide/Simethicone Susp 30 ML Cup PO PRN (14:11)
[2020-01-18] MEDS ORDERED: Magnesium Hydroxide 400 MG/5 ML Susp 30 ML Cup PO PRN (14:11)
[2020-01-18] MEDS ORDERED: ACETAMINOPHEN PO PRN (14:11)
[2020-01-18] MEDS ORDERED: OXYCODONE HCL PO PRN (14:11)
[2020-01-18] MEDS ORDERED: [UNRECOGNIZED DRUG - OTHER] PO PRN (14:11)
[2020-01-18] MEDS: Enoxaparin 40 MG/0.4 ML Syringe SUBCUT SCH (16:16)
--- NOTE | 2020-01-18 16:59 | PCM.HP.2 ---
<Eliel Manzo - Last Filed: 01/18/20 20:16> H&P History of Present Illness - General Date of Service: 01/18/20 Admit Problem/Dx: Admission Diagnosis/Problem Admission Diagnosis/Problem Weakness - History of Present Illness Initial Comments - Free Text/Narative: 84 yr old female History of present illness admitted to the medical floor for dizziness and weakness. Patient resides at an assisted living [facility], and is able to perform daily living activities. Patient states that she has been having sinus pressure, post nasal drip and ear pain for the past 2 weeks. Patient states that she also gets dizzy when trying to sit up. These dizzy episodes occur mostly in the morning but have also occurred in the afternoon. Dizziness is associated with her ear pain. Patients denies changes in any prescribed medications. Patient states that she only consumes 2-3 cups of water daily. Patient denies any fever, chills, headache, vision changes, falling, trauma, fainting, confusion. Patient also denies chest pain, shortness of breath or cough. - Related Data Allergies/Adverse Reactions: Allergies Allergy/AdvReac Type Severity Reaction Status Date / Time acetaminophen [From [place]] Allergy Agitation Verified 01/18/20 09:57 cefaclor [Cefaclor] Allergy Rash Verified 01/18/20 09:57 celecoxib [From Celebrex] Allergy Rash Verified 01/18/20 09:57 hydrocodone bitartrate Allergy Agitation Verified 01/18/20 09:57 [From [place]] levofloxacin Allergy Other Verified 01/18/20 09:57 sulfadiazine Allergy Other Verified 01/18/20 09:57 tramadol Allergy Hallucinati Verified 01/18/20 09:57 ons Home Medications: Home Meds Metoprolol Tartrate 25 mg PO DAILY 05/15/14 [History] Potassium Chloride 10 meq PO DAILY 05/15/14 [History] Acetaminophen [Tylenol] 500 mg PO Q6H PRN 01/18/20 [History] Albuterol [Proair HFA] 2 puff INH Q4HR PRN 01/18/20 [History] Carboxymethylcellulose Sodium [Artificial Tears] 1 drop EYEBOTH Q6H PRN 01/18/20 [History] Cyanocobalamin (Vitamin B12) [Vitamin B12] 1,000 mcg PO DAILY 01/18/20 [History] Donepezil HCl 10 mg PO BEDTIME 01/18/20 [History] FLUoxetine HCl [Prozac] 20 mg PO DAILY 01/18/20 [History] Loperamide HCl [Imodium A-D] 2 mg PO DAILY PRN MDD 8MG 01/18/20 [History] Mag Hydrox/Aluminum Hyd/Simeth [Maalox Maximum Strength Susp] 30 ml PO Q6H PRN 01/18/20 [History] Magnesium Hydroxide [Milk of Magnesia] 30 ml PO DAILY PRN 01/18/20 [History] Multivitamin [Poly-Vitamin] 2 each PO DAILY 01/18/20 [History] Omeprazole 40 mg PO ACBREAKFAST 01/18/20 [History] Rosuvastatin Calcium 5 mg PO .WED 01/18/20 [History] guaiFENesin 5 ml PO Q4H PRN 01/18/20 [History] hydroCHLOROthiazide [Hydrochlorothiazide] 25 mg PO DAILY 01/18/20 [History] Past Medical History HEENT History: Reports: Hard of Hearing, Impaired Vision Other HEENT History: wears glasses, has bilateral hearing aides Cardiovascular History: Reports: High Cholesterol, Hypertension Respiratory History: Reports: Bronchitis, Recurrent, COPD Gastrointestinal History: Reports: None Genitourinary History: Reports: None [employer] 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 Spinal stenosis. Psychiatric History: Reports: None Endocrine/Metabolic History: Reports: Osteoporosis Hematologic History: Reports: None Immunologic History: Reports: None Oncologic (Cancer) History: Reports: Breast Dermatologic History: Reports: None - Infectious Disease History Infectious Disease History: Reports: Measles - Past Surgical History Head Surgeries/Procedures: Reports: None HEENT Surgical History: Reports: Cataract Surgery Respiratory Surgical History: Reports: Other (See Below) GI Surgical History: Reports: None Female Surgical History: Reports: Hysterectomy Other Female Surgeries/Procedures: right breast lumpectomy Endocrine Surgical History: Reports: None Neurological Surgical History: Reports: Spinal Fusion Musculoskeletal Surgical History: Reports: Hip Replacement Oncologic Surgical History: Reports: Lumpectomy Social & Family History - Family History Family Medical History: Noncontributory Cardiac: Reports: Hypertension Oncologic: Reports: Other (See Below) Other Oncologic Family History: brother, type unknown - Tobacco Use Smoking Status *Q: Never Smoker - Caffeine Use Caffeine Use: Reports: Coffee - Recreational Drug Use Recreational Drug Use: No H&P Review of Systems - Review of Systems: Review Of Systems: See Below General: Denies: Fever, Chills, Weakness, Fatigue HEENT: Reports: Ear Pain, Headaches, Post Nasal Drip, Sinus Congestion, Sore Throat, Vertigo. Denies: Visual Changes Pulmonary: Denies: Shortness of Breath, Wheezing Cardiovascular: Denies: Chest Pain, Palpitations, Orthopnea Gastrointestinal: Denies: Abdominal Pain, Constipation, Diarrhea, Decreased Appetite, Nausea Musculoskeletal: Denies: Back Pain Skin: Denies: Cyanosis Psychiatric: Denies: Confusion Neurological: Denies: Confusion, Dizziness, Numbness, Paresthesia, Trouble Speaking Exam - Exam Exam: See Below - Vital Signs Vital Signs: Last Vital Signs Temp 96.7 F L 01/18/20 09:57 Pulse 66 01/18/20 12:26 Resp 16 01/18/20 12:26 BP 109/55 L 01/18/20 12:26 Pulse Ox 98 01/18/20 12:26 Weight: 63.503 kg - Exam General: Alert, Oriented, Cooperative HEENT: Conjunctiva Clear, EOMI Neck: Trachea Midline Lungs: Clear to Auscultation, Normal Respiratory Effort Cardiovascular: Regular Rate, Regular Rhythm GI/Abdominal Exam: Soft, Non-Tender, No Distention. No: Guarding, Rigid Back Exam: Normal Inspection Extremities: Normal Range of Motion, No Pedal Edema Skin: Warm, Dry Neurological: Normal Speech, Sensation Intact Neuro Extensive - Mental Status: Alert, Oriented x3, Normal Mood/Affect Neuro Extensive - Motor, Sensory, Reflexes: No: Tremor Psychiatric: Alert, Normal Affect - Patient Data Lab Results Last 24 hrs: Laboratory Results - last 24 hr 01/18/20 01/18/20 01/18/20 Range/Units 10:15 10:15 10:40 WBC 5.75 (4.0-11.0) K/uL RBC 4.33 (4.30-5.90) M/uL Hgb 13.4 (12.0-16.0) g/dL Hct 42.3 (36.0-46.0) % MCV 97.7 (80.0-98.0) fL MCH 30.9 (27.0-32.0) pg MCHC 31.7 (31.0-37.0) g/dL RDW Std Deviation 44.9 (28.0-62.0) fl RDW Coeff of Clary 13 (11.0-15.0) % Plt Count 294 (150-400) K/uL MPV 9.10 (7.40-12.00) fL Neut % (Auto) 58.8 (48.0-80.0) % Lymph % (Auto) 29.2 (16.0-40.0) % [place] % (Auto) 7.1 (0.0-15.0) % Eos % (Auto) 4.0 (0.0-7.0) % Baso % (Auto) 0.9 (0.0-1.5) % Neut # (Auto) 3.4 (1.4-5.7) K/uL Lymph # (Auto) 1.7 (0.6-2.4) K/uL [place] # (Auto) 0.4 (0.0-0.8) K/uL Eos # (Auto) 0.2 (0.0-0.7) K/uL Baso # (Auto) 0.1 (0.0-0.1) K/uL Nucleated RBC % 0.0 /100WBC Nucleated RBCs # 0 K/uL Sodium 139 (136-145) mmol/L Potassium 4.0 (3.5-5.1) mmol/L Chloride 102 (98-107) mmol/L Carbon Dioxide 28.7 (21.0-32.0) mmol/L BUN 23 H (7.0-18.0) mg/dL Creatinine 1.1 H (0.6-1.0) mg/dL Est Cr Clr Drug Dosing 33.46 mL/min Estimated GFR (MDRD) 47.4 ml/min Glucose 97 (74-106) mg/dL Calcium 9.4 (8.5-10.1) mg/dL Total Bilirubin 0.4 (0.2-1.0) mg/dL AST 15 (15-37) IU/L ALT 17 (14-63) IU/L Alkaline Phosphatase 66 (46-116) U/L Troponin I < 0.050 (0.000-0.056) ng/mL Total Protein 7.0 (6.4-8.2) g/dL Albumin 3.7 (3.4-5.0) g/dL Globulin 3.3 (2.6-4.0) g/dL Albumin/Globulin Ratio 1.1 (0.9-1.6) Urine Color YELLOW Urine Appearance CLEAR Urine pH 6.5 (5.0-8.0) Ur Specific [place] 1.010 (1.001-1.035) Urine Protein NEGATIVE (NEGATIVE) mg/dL Urine Glucose (UA) NEGATIVE (NEGATIVE) mg/dL Urine Ketones NEGATIVE (NEGATIVE) mg/dL Urine Occult Blood NEGATIVE (NEGATIVE) Urine Nitrite NEGATIVE (NEGATIVE) Urine Bilirubin NEGATIVE (NEGATIVE) Urine Urobilinogen 0.2 (<2.0) EU/dL Ur Leukocyte Esterase NEGATIVE (NEGATIVE) SARS Virus RNA (PCR) (NEGATIVE) 01/18/20 Range/Units 12:04 WBC (4.0-11.0) K/uL RBC (4.30-5.90) M/uL Hgb (12.0-16.0) g/dL Hct (36.0-46.0) % MCV (80.0-98.0) fL MCH (27.0-32.0) pg MCHC (31.0-37.0) g/dL RDW Std Deviation (28.0-62.0) fl RDW Coeff of Clary (11.0-15.0) % Plt Count (150-400) K/uL MPV (7.40-12.00) fL Neut % (Auto) (48.0-80.0) % Lymph % (Auto) (16.0-40.0) % [place] % (Auto) (0.0-15.0) % Eos % (Auto) (0.0-7.0) % Baso % (Auto) (0.0-1.5) % Neut # (Auto) (1.4-5.7) K/uL Lymph # (Auto) (0.6-2.4) K/uL [place] # (Auto) (0.0-0.8) K/uL Eos # (Auto) (0.0-0.7) K/uL Baso # (Auto) (0.0-0.1) K/uL Nucleated RBC % /100WBC Nucleated RBCs # K/uL Sodium (136-145) mmol/L Potassium (3.5-5.1) mmol/L Chloride (98-107) mmol/L Carbon Dioxide (21.0-32.0) mmol/L BUN (7.0-18.0) mg/dL Creatinine (0.6-1.0) mg/dL Est Cr Clr Drug Dosing mL/min Estimated GFR (MDRD) ml/min Glucose (74-106) mg/dL Calcium (8.5-10.1) mg/dL Total Bilirubin (0.2-1.0) mg/dL AST (15-37) IU/L ALT (14-63) IU/L Alkaline Phosphatase (46-116) U/L Troponin I (0.000-0.056) ng/mL Total Protein (6.4-8.2) g/dL Albumin (3.4-5.0) g/dL Globulin (2.6-4.0) g/dL Albumin/Globulin Ratio (0.9-1.6) Urine Color Urine Appearance Urine pH (5.0-8.0) Ur Specific [place] (1.001-1.035) Urine Protein (NEGATIVE) mg/dL Urine Glucose (UA) (NEGATIVE) mg/dL Urine Ketones (NEGATIVE) mg/dL Urine Occult Blood (NEGATIVE) Urine Nitrite (NEGATIVE) Urine Bilirubin (NEGATIVE) Urine Urobilinogen (<2.0) EU/dL Ur Leukocyte Esterase (NEGATIVE) SARS Virus RNA (PCR) NEGATIVE (NEGATIVE) Result Diagrams: 01/18/20 10:15 01/18/20 10:15 Sepsis Event Note - Evaluation Sepsis Screening Result: No Definite Risk - Focused Exam Vital Signs: Vital Signs Temp Pulse Resp BP Pulse Ox 01/18/20 12:26 66 16 109/55 L 98 01/18/20 10:51 78 17 101/77 96 01/18/20 10:27 71 18 160/59 H 96 01/18/20 09:57 96.7 F L 63 16 151/73 H 97 Problem List Initiated/Reviewed/Updated: Yes Orders Last 24hrs: Active Orders 24 hr Category Date Time Status Admission Status [Patient Status] [ADT] Stat ADT 01/18/20 11:36 Active Patient Status [ADT] Routine ADT 01/18/20 14:44 Active Patient Status [ADT] Routine ADT 01/18/20 15:24 Active EKG Documentation Completion [RC] STAT Care 01/18/20 09:58 Active Oxygen Therapy [RC] PRN Care 01/18/20 14:44 Active Oxygen Therapy [RC] PRN Care 01/18/20 15:24 Active Telemetry Monitoring [Cardiac Monitoring] [RC] Q8H Care 01/18/20 13:29 Active Up With Assistance [RC] ASDIRECTED Care 01/18/20 15:24 Active VTE/DVT Education [RC] PER UNIT ROUTINE Care 01/18/20 14:44 Active VTE/DVT Education [RC] PER UNIT ROUTINE Care 01/18/20 15:24 Active Vital Signs [RC] Q4H Care 01/18/20 14:44 Active PT Evaluation and Treatment [CONS] Routine Cons 01/18/20 15:24 Active Regular Diet [DIET] Diet 01/18/20 Dinner Active BASIC METABOLIC PANEL,BMP [CHEM] AM Lab 01/19/20 05:11 Ordered CBC WITH AUTO DIFF [HEME] AM Lab 01/19/20 05:11 Ordered Albuterol [Ventolin HFA] Med 01/18/20 13:51 Active 0 gm INH Q4H PRN Alum Hydrox/Mag Hydrox/Simeth [Mag-Al Plus] Med 01/18/20 14:11 Active 30 ml PO Q6H PRN Donepezil [Aricept] Med 01/18/20 21:00 Active 10 mg PO BEDTIME Enoxaparin [Lovenox] Med 01/18/20 15:30 Active 40 mg SUBCUT Q24H FLUoxetine [PROzac] Med 01/19/20 09:00 Active 20 mg PO DAILY Lactated Ringers [Ringers, Lactated] 1,000 ml Med 01/18/20 15:30 Active IV ASDIRECTED Loperamide [Imodium] Med 01/18/20 13:51 Active 2 mg PO DAILY PRN Magnesium Hydroxide [Milk of Magnesia] Med 01/18/20 14:11 Active 30 ml PO DAILY PRN Metoprolol Tartrate [Lopressor] Med 01/19/20 09:00 Active 25 mg PO DAILY Omeprazole Med 01/19/20 07:30 Active 40 mg PO ACBREAKFAST Potassium Chloride [Klor-Con 10] Med 01/19/20 09:00 Active 10 meq PO DAILY Rosuvastatin Calcium [Rosuvastatin Calcium] Med 01/18/20 14:15 Pending 5 mg PO .WED Sodium Chloride 0.9% [Saline Flush] Med 01/18/20 10:00 Active 10 ml FLUSH ASDIRECTED PRN Sodium Chloride 0.9% [Saline Flush] Med 01/18/20 10:00 Active 2.5 ml FLUSH ASDIRECTED PRN guaiFENesin [Robitussin] Med 01/18/20 13:51 Active 100 mg PO Q4H PRN hydroCHLOROthiazide Med 01/19/20 09:00 Active 25 mg PO DAILY Saline Lock Insert [OM.PC] Stat Oth 01/18/20 10:01 Ordered Resuscitation Status Routine Resus Stat 01/18/20 15:24 Ordered Medication Orders Al Hydroxide/Mg Hydroxide (Mag-Al Plus) 30 ml PO Q6H PRN PRN Reason: Heartburn Albuterol (Ventolin Hfa) 0 gm INH Q4H PRN PRN Reason: Shortness of Breath Donepezil HCl (Aricept) 10 mg PO BEDTIME [facility] Enoxaparin Sodium (Lovenox) 40 mg SUBCUT Q24H [facility] Last Admin: 01/18/20 16:16 Dose: 40 mg Documented by: MENSFRA Fluoxetine HCl (Prozac) 20 mg PO DAILY IMAN Guaifenesin (Robitussin) 100 mg PO Q4H PRN PRN Reason: Cough Hydrochlorothiazide (Hydrochlorothiazide) 25 mg PO DAILY [facility] Lactated Ringer's (Ringers, Lactated) 1,000 mls @ 125 mls/hr IV ASDIRECTED [facility] Loperamide HCl (Imodium) 2 mg PO DAILY PRN PRN Reason: Diarrhea Magnesium Hydroxide (Milk Of Magnesia) 30 ml PO DAILY PRN PRN Reason: Constipation Metoprolol Tartrate (Lopressor) 25 mg PO DAILY [facility] Non-Formulary Medication (Rosuvastatin Calcium [Rosuvastatin Calcium]) 5 mg PO .WED [facility] Omeprazole (Omeprazole) 40 mg PO ACBREAKFAST [facility] Potassium Chloride (Klor-Con 10) 10 meq PO DAILY [facility] Sodium Chloride (Saline Flush) 10 ml FLUSH ASDIRECTED PRN PRN Reason: Keep Vein Open Last Admin: 01/18/20 10:18 Dose: 10 ml Documented by: MURDNIC Sodium Chloride (Saline Flush) 2.5 ml FLUSH ASDIRECTED PRN PRN Reason: Keep Vein Open Last Admin: 01/18/20 10:18 Dose: 2.5 ml Documented by: SUSAN Assessment Plan: Dizziness: No acute concerns for patients dizziness based on lab work and CT imaging. Will monitor patient overnight for any episodes of dizziness. If patient is ambulating will get AM orthostatic vital signs. Monitor glucose levels for hypoglycemia. Monitor BP for hypotension. Ensure adequate fluid intake, LR 100MLS/HR. Monitor for electrolyte abnormalities. Ambulatory Dysfunction: Physical therapy and occupational therapy to assess for ambulation capabilities and strength. Patient does state that she is able to perform ADL's. No metabolic or pathologic causes for patients weakness have been found at this time based on lab work and imaging. <Artem Garcia - Last Filed: 01/20/20 11:37> H&P History of Present Illness - General Admit Problem/Dx: Admission Diagnosis/Problem Admission Diagnosis/Problem Weakness - History of Present Illness Initial Comments - Free Text/Narative: I performed a history and physical exam of the patient and discussed management with resident. I have reviewed the residents note and agree with documented findings and plan unless otherwise specified in my note. Exam - Vital Signs Vital Signs: Last Vital Signs Temp 36.7 C 01/19/20 16:00 Pulse 63 01/19/20 16:00 Resp 18 01/19/20 16:00 BP 140/63 01/19/20 16:00 Pulse Ox 95 01/19/20 16:00 Orthostatic Blood Pressure [ 162/82 Standing] Orthostatic Blood Pressure [ 179/65 Sitting] Orthostatic Blood Pressure [ 185/62 Supine] - Patient Data Result Diagrams: 01/19/20 05:35 01/19/20 05:35
[2020-01-18] MEDS ORDERED: Donepezil 10 MG Tab PO SCH (21:00)
[2020-01-18] MEDS: Lactated Ringers 1,000 ML IV SCH (21:32)
[2020-01-19 06:23] LABS: CARBON DIOXIDE,CO2 26.9 mmol/L (21.0-32.0); POTASSIUM,K 3.6 mmol/L (3.5-5.1)
[2020-01-19] MEDS: Omeprazole 20 MG Cap.CR PO SCH ×2 (07:02→07:20)
[2020-01-19] MEDS: Lactated Ringers 1,000 ML IV SCH (07:16)
[2020-01-19] MEDS ORDERED: Metoprolol Tartrate 25 MG Tab PO SCH (09:00)
[2020-01-19] MEDS ORDERED: Hydrochlorothiazide 25 MG Tab PO SCH (09:00)
[2020-01-19] MEDS ORDERED: Potassium Chloride 10 MEQ Tab.ER PO SCH (09:00)
[2020-01-19] MEDS ORDERED: FLUoxetine 20 MG Cap PO SCH (09:00)
--- NOTE | 2020-01-19 12:23 | PCM.PN ---
- General Info Date of Service: 01/19/20 Admission Dx/Problem (Free Text): Admission Diagnosis/Problem Admission Diagnosis/Problem Weakness Subjective Update: seen at bedside, keen go home, refused morning meds Functional Status: Reports: Pain Controlled, Tolerating Diet, Ambulating, Urinating - Review of Systems General: Denies: Fever, Weakness, Fatigue Pulmonary: Denies: Shortness of Breath, Pleuritic Chest Pain Cardiovascular: Denies: Chest Pain, Palpitations, Dyspnea on Exertion Gastrointestinal: Denies: Abdominal Pain, Constipation, Decreased Appetite Genitourinary: Denies: Dysuria, Frequency, Burning, Pain Musculoskeletal: Denies: Neck Pain, Shoulder Pain, Arm Pain Skin: Denies: Cyanosis, Jaundice, Mottled Neurological: Denies: Confusion, Dizziness, Headache Psychiatric: Denies: Confusion, Depression, Mood Lability - Patient Data Vitals - Most Recent: Last Vital Signs Temp 37.2 C 01/19/20 12:00 Pulse 60 01/19/20 12:00 Resp 17 01/19/20 12:00 BP 172/66 H 01/19/20 12:00 Pulse Ox 95 01/19/20 12:00 Orthostatic Blood Pressure [ 162/82 Standing] Orthostatic Blood Pressure [ 179/65 Sitting] Orthostatic Blood Pressure [ 185/62 Supine] Weight - Most Recent: 63.503 kg I&O - Last 24 Hours: Intake & Output 01/18/20 01/19/20 01/19/20 22:59 06:59 14:59 Intake Total 0 1371 Output Total 0 1050 Balance 0 321 Lab Results Last 24 Hours: Laboratory Results - last 24 hr 01/18/20 01/19/20 01/19/20 Range/Units 12:04 05:35 05:35 WBC 6.05 (4.0-11.0) K/uL RBC 4.05 L (4.30-5.90) M/uL Hgb 12.6 (12.0-16.0) g/dL Hct 39.7 (36.0-46.0) % MCV 98.0 (80.0-98.0) fL MCH 31.1 (27.0-32.0) pg MCHC 31.7 (31.0-37.0) g/dL RDW Std Deviation 45.2 (28.0-62.0) fl RDW Coeff of Clary 13 (11.0-15.0) % Plt Count 297 (150-400) K/uL MPV 9.20 (7.40-12.00) fL Neut % (Auto) 58.8 (48.0-80.0) % Lymph % (Auto) 26.8 (16.0-40.0) % [place] % (Auto) 9.6 (0.0-15.0) % Eos % (Auto) 4.3 (0.0-7.0) % Baso % (Auto) 0.5 (0.0-1.5) % Neut # (Auto) 3.6 (1.4-5.7) K/uL Lymph # (Auto) 1.6 (0.6-2.4) K/uL [place] # (Auto) 0.6 (0.0-0.8) K/uL Eos # (Auto) 0.3 (0.0-0.7) K/uL Baso # (Auto) 0.0 (0.0-0.1) K/uL Nucleated RBC % 0.0 /100WBC Nucleated RBCs # 0 K/uL Sodium 139 (136-145) mmol/L Potassium 3.6 (3.5-5.1) mmol/L Chloride 104 (98-107) mmol/L Carbon Dioxide 26.9 (21.0-32.0) mmol/L BUN 19 H (7.0-18.0) mg/dL Creatinine 1.0 (0.6-1.0) mg/dL Est Cr Clr Drug Dosing 36.81 mL/min Estimated GFR (MDRD) 53.0 ml/min Glucose 89 (74-106) mg/dL Calcium 9.0 (8.5-10.1) mg/dL SARS Virus RNA (PCR) NEGATIVE (NEGATIVE) Med Orders - Current: Current Medications Al Hydroxide/Mg Hydroxide (Mag-Al Plus) 30 ml PO Q6H PRN PRN Reason: Heartburn Albuterol (Ventolin Hfa) 0 gm INH Q4H PRN PRN Reason: Shortness of Breath Donepezil HCl (Aricept) 10 mg PO BEDTIME [facility] [place] Last Admin: 01/18/20 21:34 Dose: 10 mg Documented by: Enoxaparin Sodium (Lovenox) 40 mg SUBCUT Q24H [facility] [place] Last Admin: 01/18/20 16:16 Dose: 40 mg Documented by: Fluoxetine HCl (Prozac) 20 mg PO DAILY [facility] [place] Last Admin: 01/19/20 08:31 Dose: 20 mg Documented by: Guaifenesin (Robitussin) 100 mg PO Q4H PRN PRN Reason: Cough Hydrochlorothiazide (Hydrochlorothiazide) 25 mg PO DAILY [facility] [place] Last Admin: 01/19/20 08:31 Dose: 25 mg Documented by: Loperamide HCl (Imodium) 2 mg PO DAILY PRN PRN Reason: Diarrhea Magnesium Hydroxide (Milk Of Magnesia) 30 ml PO DAILY PRN PRN Reason: Constipation Metoprolol Tartrate (Lopressor) 25 mg PO DAILY [facility] [place] Last Admin: 01/19/20 08:32 Dose: 25 mg Documented by: Omeprazole (Omeprazole) 40 mg PO ACBREAKFAST [facility] [place] Last Admin: 01/19/20 07:20 Dose: 40 mg Documented by: Potassium Chloride (Klor-Con 10) 10 meq PO DAILY [facility] [place] Last Admin: 01/19/20 08:31 Dose: 10 meq Documented by: Rosuvastatin Calcium (Crestor) 5 mg PO We [facility] [place] Sodium Chloride (Saline Flush) 10 ml FLUSH ASDIRECTED PRN PRN Reason: Keep Vein Open Last Admin: 01/18/20 10:18 Dose: 10 ml Documented by: Sodium Chloride (Saline Flush) 2.5 ml FLUSH ASDIRECTED PRN PRN Reason: Keep Vein Open Last Admin: 01/18/20 10:18 Dose: 2.5 ml Documented by: Discontinued Medications Acetaminophen (Tylenol Extra Strength) 500 mg PO Q6H PRN PRN Reason: Pain Lactated Ringer's (Ringers, Lactated) 1,000 mls @ 100 mls/hr IV ASDIRECTED [facility] [place] Last Admin: 01/19/20 07:16 Dose: 100 mls/hr Documented by: Lorazepam (Ativan) 0.25 mg IVPUSH ONETIME ONE Stop: 01/18/20 12:29 Last Admin: 01/18/20 12:33 Dose: 0.25 mg Documented by: Lorazepam (Ativan) Confirm Administered Dose 2 mg .ROUTE .STK-MED ONE Stop: 01/18/20 12:31 Last Admin: 01/18/20 13:52 Dose: Not Given Documented by: Meclizine HCl (Antivert) 25 mg PO ONETIME ONE Stop: 01/18/20 10:01 Last Admin: 01/18/20 10:13 Dose: 25 mg Documented by: Non-Formulary Medication (Oxycodone Hcl/Acetaminophen [Oxycodon-Acetaminophen 2.5-300]) 1 each PO Q6H PRN PRN Reason: Pain - Exam General: Alert, Oriented, Cooperative, No Acute Distress Neck: Supple Lungs: Clear to Auscultation, Normal Respiratory Effort Cardiovascular: Regular Rate, Regular Rhythm GI/Abdominal Exam: Normal Bowel Sounds, Soft, Non-Tender Extremities: Normal Inspection, Normal Range of Motion Peripheral Pulses: 3+: Dorsalis Pedis (L), Dorsalis Pedis (R) Sepsis Event Note - Evaluation Sepsis Screening Result: No Definite Risk - Focused Exam Vital Signs: Vital Signs Temp Pulse Pulse Resp BP BP Pulse Ox 01/19/20 12:00 37.2 C 60 17 172/66 H 95 01/19/20 08:32 79 134/72 01/19/20 07:20 37.0 C 79 19 134/72 97 01/19/20 05:12 36.7 C 66 17 173/74 H 93 L - Problem List Review Problem List Initiated/Reviewed/Updated: Yes - My Orders Last 24 Hours: My Active Orders 01/18/20 13:29 Telemetry Monitoring [Cardiac Monitoring] [RC] Q8H - Plan Plan:: Dizziness: resolved, CT head unremarkable, troponin negative, tele unremarkable, Ensure adequate fluid intake, LR 100MLS/HR. Monitor for electrolyte abnormalities Ambulatory Dysfunction: Patient denied having difficulty walking, will assess her ambulation later today to see if she is safe to dc to assisted living. Family has been updated as well. Dementia: Cont supportive care,
[2020-01-19] MEDS: Enoxaparin 40 MG/0.4 ML Syringe SUBCUT SCH (15:19)
[2020-01-19 16:19] VITALS: BP 140/63; PULSE 63
--- NOTE | 2020-01-19 18:36 | PCM.DCSUM1 ---
<Rad Dodd - Last Filed: 01/20/20 16:22> Discharge Summary - Hospital Course Free Text/Narrative:: Hospital course: 84 yr old female History of present illness admitted to the medical floor for dizziness and weakness. Patient resides at an assisted living [facility], and is able to perform daily living activities. Patient states that she has been having sinus pressure, post nasal drip and ear pain for the past 2 weeks. Patient states that she also gets dizzy when trying to sit up. These dizzy episodes occur mostly in the morning but have also occurred in the afternoon. Dizziness is associated with her ear pain. Patients denies changes in any prescribed medications. Patient states that she only consumes 2-3 cups of water daily. Patient denies any fever, chills, headache, vision changes, falling, trauma, fainting, confusion. Patient also denies chest pain, shortness of breath or cough. Head CT negative in ED Hospital course: No acute concerns for patients dizziness based on lab work and CT imaging. Following morning pt. ambulating at baseline w.o assistance and requesting discharge. Discussed safety concerns w. pt and pt. denied any issues w. independent living. Spoke to daughter of patient; understands pt. at some point due to her dementia may benefit with more assistance type care but is functional at this time and will hold off on [facility] transfer. pt otherwise stable, labs and vitals nominal, dizziness could not be reproduced and pt., was stable w. ambulation with nursing staff and during examination. pt requested discharge and discharged to [facility]. - Discharge Data Discharge Date: 01/19/20 Discharge Disposition: Home, Self-Care 01 Condition: Good - Referral to Home Health Primary Care Physician: PCP Unobtainable - Patient Summary/Data Consults: Consultations 01/18/20 15:24 PT Evaluation and Treatment [CONS] Routine 01/18/20 19:57 Consult to Occupational Therapy [OT Evaluation and Treatment] [CONS] Routine - Patient Instructions Diet: Regular Diet as Tolerated Driving: Do Not Drive Notify Provider of: Fever, Nausea and/or Vomiting - Discharge Plan *PRESCRIPTION DRUG MONITORING PROGRAM REVIEWED*: No *COPY OF PRESCRIPTION DRUG MONITORING REPORT IN PATIENT CHUNG: No Home Medications: Home Meds Metoprolol Tartrate 25 mg PO DAILY 05/15/14 [History] Potassium Chloride 10 meq PO DAILY 05/15/14 [History] Acetaminophen [Tylenol] 500 mg PO Q6H PRN 01/18/20 [History] Albuterol [Proair HFA] 2 puff INH Q4HR PRN 01/18/20 [History] Carboxymethylcellulose Sodium [Artificial Tears] 1 drop EYEBOTH Q6H PRN 01/18/20 [History] Cyanocobalamin (Vitamin B12) [Vitamin B12] 1,000 mcg PO DAILY 01/18/20 [History] Donepezil HCl 10 mg PO BEDTIME 01/18/20 [History] FLUoxetine HCl [Prozac] 20 mg PO DAILY 01/18/20 [History] Loperamide HCl [Imodium A-D] 2 mg PO DAILY PRN MDD 8MG 01/18/20 [History] Mag Hydrox/Aluminum Hyd/Simeth [Maalox Maximum Strength Susp] 30 ml PO Q6H PRN 01/18/20 [History] Magnesium Hydroxide [Milk of Magnesia] 30 ml PO DAILY PRN 01/18/20 [History] Multivitamin [Poly-Vitamin] 2 each PO DAILY 01/18/20 [History] Omeprazole 40 mg PO ACBREAKFAST 01/18/20 [History] Rosuvastatin Calcium 5 mg PO .WED 01/18/20 [History] guaiFENesin 5 ml PO Q4H PRN 01/18/20 [History] hydroCHLOROthiazide [Hydrochlorothiazide] 25 mg PO DAILY 01/18/20 [History] Patient Handouts: Weakness, [id number], Dehydration, Elderly, Uwqy-ae-Olct Referrals: Juan C Weir MD [Ordering Only Provider] - (Please make follow up appointment with your primary care provider.) - Discharge Summary/Plan Comment DC Time >30 min.: No - Patient Data Vitals - Most Recent: Last Vital Signs Temp 98.0 F 01/19/20 16:00 Pulse 63 01/19/20 16:00 Resp 18 01/19/20 16:00 BP 140/63 01/19/20 16:00 Pulse Ox 95 01/19/20 16:00 Orthostatic Blood Pressure [ 162/82 Standing] Orthostatic Blood Pressure [ 179/65 Sitting] Orthostatic Blood Pressure [ 185/62 Supine] Weight - Most Recent: 63.503 kg I&O - Last 24 hours: Intake & Output 01/19/20 01/19/2020 06:59 14:59 22:59 Intake Total 1371 580 Output Total 4220 602 Balance 321 -22 Lab Results - Last 24 hrs: Laboratory Results - last 24 hr 01/19/20 01/19/20 Range/Units 05:35 05:35 WBC 6.05 (4.0-11.0) K/uL RBC 4.05 L (4.30-5.90) M/uL Hgb 12.6 (12.0-16.0) g/dL Hct 39.7 (36.0-46.0) % MCV 98.0 (80.0-98.0) fL MCH 31.1 (27.0-32.0) pg MCHC 31.7 (31.0-37.0) g/dL RDW Std Deviation 45.2 (28.0-62.0) fl RDW Coeff of Clary 13 (11.0-15.0) % Plt Count 297 (150-400) K/uL MPV 9.20 (7.40-12.00) fL Neut % (Auto) 58.8 (48.0-80.0) % Lymph % (Auto) 26.8 (16.0-40.0) % Dupage % (Auto) 9.6 (0.0-15.0) % Eos % (Auto) 4.3 (0.0-7.0) % Baso % (Auto) 0.5 (0.0-1.5) % Neut # (Auto) 3.6 (1.4-5.7) K/uL Lymph # (Auto) 1.6 (0.6-2.4) K/uL Dupage # (Auto) 0.6 (0.0-0.8) K/uL Eos # (Auto) 0.3 (0.0-0.7) K/uL Baso # (Auto) 0.0 (0.0-0.1) K/uL Nucleated RBC % 0.0 /100WBC Nucleated RBCs # 0 K/uL Sodium 139 (136-145) mmol/L Potassium 3.6 (3.5-5.1) mmol/L Chloride 104 (98-107) mmol/L Carbon Dioxide 26.9 (21.0-32.0) mmol/L BUN 19 H (7.0-18.0) mg/dL Creatinine 1.0 (0.6-1.0) mg/dL Est Cr Clr Drug Dosing 36.81 mL/min Estimated GFR (MDRD) 53.0 ml/min Glucose 89 (74-106) mg/dL Calcium 9.0 (8.5-10.1) mg/dL Med Orders - Current: Current Medications Al Hydroxide/Mg Hydroxide (Mag-Al Plus) 30 ml PO Q6H PRN PRN Reason: Heartburn Albuterol (Ventolin Hfa) 0 gm INH Q4H PRN PRN Reason: Shortness of Breath Donepezil HCl (Aricept) 10 mg PO BEDTIME [facility] Last Admin: 01/18/20 21:34 Dose: 10 mg Documented by: Enoxaparin Sodium (Lovenox) 40 mg SUBCUT Q24H [facility] Last Admin: 01/19/20 15:19 Dose: 40 mg Documented by: Fluoxetine HCl (Prozac) 20 mg PO DAILY [facility] Last Admin: 01/19/20 08:31 Dose: 20 mg Documented by: Guaifenesin (Robitussin) 100 mg PO Q4H PRN PRN Reason: Cough Hydrochlorothiazide (Hydrochlorothiazide) 25 mg PO DAILY [facility] Last Admin: 01/19/20 08:31 Dose: 25 mg Documented by: Loperamide HCl (Imodium) 2 mg PO DAILY PRN PRN Reason: Diarrhea Magnesium Hydroxide (Milk Of Magnesia) 30 ml PO DAILY PRN PRN Reason: Constipation Metoprolol Tartrate (Lopressor) 25 mg PO DAILY [facility] Last Admin: 01/19/20 08:32 Dose: 25 mg Documented by: Omeprazole (Omeprazole) 40 mg PO ACBREAKFAST [facility] Last Admin: 01/19/20 07:20 Dose: 40 mg Documented by: Potassium Chloride (Klor-Con 10) 10 meq PO DAILY [facility] Last Admin: 01/19/20 08:31 Dose: 10 meq Documented by: Rosuvastatin Calcium (Crestor) 5 mg PO We [facility] Sodium Chloride (Saline Flush) 10 ml FLUSH ASDIRECTED PRN PRN Reason: Keep Vein Open Last Admin: 01/18/20 10:18 Dose: 10 ml Documented by: Sodium Chloride (Saline Flush) 2.5 ml FLUSH ASDIRECTED PRN PRN Reason: Keep Vein Open Last Admin: 01/18/20 10:18 Dose: 2.5 ml Documented by: Discontinued Medications Acetaminophen (Tylenol Extra Strength) 500 mg PO Q6H PRN PRN Reason: Pain Lactated Ringer's (Ringers, Lactated) 1,000 mls @ 100 mls/hr IV ASDIRECTED IMAN Last Admin: 01/19/20 07:16 Dose: 100 mls/hr Documented by: Lorazepam (Ativan) 0.25 mg IVPUSH ONETIME ONE Stop: 01/18/20 12:29 Last Admin: 01/18/20 12:33 Dose: 0.25 mg Documented by: Lorazepam (Ativan) Confirm Administered Dose 2 mg .ROUTE .STK-MED ONE Stop: 01/18/20 12:31 Last Admin: 01/18/20 13:52 Dose: Not Given Documented by: Meclizine HCl (Antivert) 25 mg PO ONETIME ONE Stop: 01/18/20 10:01 Last Admin: 01/18/20 10:13 Dose: 25 mg Documented by: Non-Formulary Medication (Oxycodone Hcl/Acetaminophen [Oxycodon-Acetaminophen 2.5-300]) 1 each PO Q6H PRN PRN Reason: Pain <Jose,Hooria - Last Filed: 01/22/20 12:36> Discharge Summary - Hospital Course Free Text/Narrative:: I have seen and evaluated the patient and agree with the residents note unless specified in my note - Referral to Home Health Primary Care Physician: PCP Unobtainable - Patient Summary/Data Consults: Consultations 01/18/20 15:24 PT Evaluation and Treatment [CONS] Routine 01/18/20 19:57 Consult to Occupational Therapy [OT Evaluation and Treatment] [CONS] Routine - Patient Data Vitals - Most Recent: Last Vital Signs Temp 36.7 C 01/19/20 16:00 Pulse 63 01/19/20 16:00 Resp 18 01/19/20 16:00 BP 140/63 01/19/20 16:00 Pulse Ox 95 01/19/20 16:00 Orthostatic Blood Pressure [ 162/82 Standing] Orthostatic Blood Pressure [ 179/65 Sitting] Orthostatic Blood Pressure [ 185/62 Supine] Med Orders - Current: Current Medications Discontinued Medications Acetaminophen (Tylenol Extra Strength) 500 mg PO Q6H PRN PRN Reason: Pain Al Hydroxide/Mg Hydroxide (Mag-Al Plus) 30 ml PO Q6H PRN PRN Reason: Heartburn Albuterol (Ventolin Hfa) 0 gm INH Q4H PRN PRN Reason: Shortness of Breath Donepezil HCl (Aricept) 10 mg PO BEDTIME [facility] Last Admin: 01/18/20 21:34 Dose: 10 mg Documented by: Enoxaparin Sodium (Lovenox) 40 mg SUBCUT Q24H [facility] Last Admin: 01/19/20 15:19 Dose: 40 mg Documented by: Fluoxetine HCl (Prozac) 20 mg PO DAILY [facility] Last Admin: 01/19/20 08:31 Dose: 20 mg Documented by: Guaifenesin (Robitussin) 100 mg PO Q4H PRN PRN Reason: Cough Hydrochlorothiazide (Hydrochlorothiazide) 25 mg PO DAILY [facility] Last Admin: 01/19/20 08:31 Dose: 25 mg Documented by: Lactated Ringer's (Ringers, Lactated) 1,000 mls @ 100 mls/hr IV ASDIRECTED [facility] Last Admin: 01/19/20 07:16 Dose: 100 mls/hr Documented by: Loperamide HCl (Imodium) 2 mg PO DAILY PRN PRN Reason: Diarrhea Lorazepam (Ativan) 0.25 mg IVPUSH ONETIME ONE Stop: 01/18/20 12:29 Last Admin: 01/18/20 12:33 Dose: 0.25 mg Documented by: Lorazepam (Ativan) Confirm Administered Dose 2 mg .ROUTE .STK-MED ONE Stop: 01/18/20 12:31 Last Admin: 01/18/20 13:52 Dose: Not Given Documented by: Magnesium Hydroxide (Milk Of Magnesia) 30 ml PO DAILY PRN PRN Reason: Constipation Meclizine HCl (Antivert) 25 mg PO ONETIME ONE Stop: 01/18/20 10:01 Last Admin: 01/18/20 10:13 Dose: 25 mg Documented by: Metoprolol Tartrate (Lopressor) 25 mg PO DAILY [facility] Last Admin: 01/19/20 08:32 Dose: 25 mg Documented by: Non-Formulary Medication (Oxycodone Hcl/Acetaminophen [Oxycodon-Acetaminophen 2.5-300]) 1 each PO Q6H PRN PRN Reason: Pain Omeprazole (Omeprazole) 40 mg PO ACBREAKFAST [facility] Last Admin: 01/19/20 07:20 Dose: 40 mg Documented by: Potassium Chloride (Klor-Con 10) 10 meq PO DAILY [facility] Last Admin: 01/19/20 08:31 Dose: 10 meq Documented by: Rosuvastatin Calcium (Crestor) 5 mg PO We IMAN Sodium Chloride (Saline Flush) 10 ml FLUSH ASDIRECTED PRN PRN Reason: Keep Vein Open Last Admin: 01/18/20 10:18 Dose: 10 ml Documented by: Sodium Chloride (Saline Flush) 2.5 ml FLUSH ASDIRECTED PRN PRN Reason: Keep Vein Open Last Admin: 01/18/20 10:18 Dose: 2.5 ml Documented by:
[2020-01-22] MEDS ORDERED: Rosuvastatin 10 MG Tab PO SCH (09:00)
== END 2020-01-19 19:10 | disposition home or self-care (01) | DRG 149 ==
LOC: MW.ED 09:52 → MW.MS 11:36
PROVIDERS: ADMIT Student in an Organized Health Care Education/Training Program; ATTEND Student in an Organized Health Care Education/Training Program
DX: H81.11 Benign paroxysmal vertigo, right ear (principal); R53.1 Weakness; F03.90 Unspecified dementia, unspecified severity, without behavioral disturbance, psychotic disturbance, mood disturbance, and anxiety; H54.7 Unspecified visual loss; H91.93 Unspecified hearing loss, bilateral; Z20.828 Contact with and (suspected) exposure to other viral communicable diseases; J44.9 Chronic obstructive pulmonary disease, unspecified; E78.00 Pure hypercholesterolemia, unspecified; I10 Essential (primary) hypertension; Z85.3 Personal history of malignant neoplasm of breast; Z96.649 Presence of unspecified artificial hip joint; Z90.710 Acquired absence of both cervix and uterus; M81.0 Age-related osteoporosis without current pathological fracture; Z98.890 Other specified postprocedural states; Z88.1 Allergy status to other antibiotic agents; Z88.2 Allergy status to sulfonamides; Z79.899 Other long term (current) drug therapy; Z98.49 Cataract extraction status, unspecified eye; Z88.8 Allergy status to other drugs, medicaments and biological substances; Z88.6 Allergy status to analgesic agent
CPT/HCPCS: 36415; 70450; 71045; 80053; 81003; 84484; 85025; 93005; A9270; 80048; 99285-25; J1650; J2060; J7120; U0002

== ENCOUNTER 2020-10-14 13:43 | Emergency (ER) | payer MEDICARE, OTHER ==
--- NOTE | 2020-10-14 14:26 | EDM.PDOC ---
ED HPI GENERAL MEDICAL PROBLEM - General Chief Complaint: Lower Extremity Injury/Pain Stated Complaint: HIP PAIN Time Seen by Provider: 10/14/20 13:44 Source of Information: Reports: Patient History Limitations: Reports: Other (History of dementia) - History of Present Illness INITIAL COMMENTS - FREE TEXT/NARRATIVE: HISTORY AND PHYSICAL: History of present illness: The patient is an 85-year-old with a history of chronic right leg pain and dementia who presents to the ED the with complaints of right hip pain. The patient states that she has not fallen but her friend is unsure as the patient often forgets. The patient states that her right hip pain is worse today than it has been for a long time. The patient denies any fever, chills, headache, change in vision, syncope or near syncope. Denies any chest pain, back pain, shortness of breath or cough. Denies any abdominal pain, nausea, vomiting, diarrhea, constipation or dysuria. Has not noted any blood in urine or stool. Patient has been eating and drinking appropriately. Review of systems: As per history of present illness and below otherwise all systems reviewed and negative. Past medical history: As per history of present illness and as reviewed below otherwise noncontributory. Surgical history: As per history of present illness and as reviewed below otherwise noncontributory. Social history: See social history for further information Family history: As per history of present illness and as reviewed below otherwise noncontributory. Physical exam: General: Well developed and well nourished. Alert and self and place. Nontoxic in appearance and in no acute distress. Vital signs are stable and have been reviewed by me. Nursing notes were reviewed. HEENT: Atraumatic, normocephalic, pupils equal and reactive bilaterally, negative for conjunctival pallor or scleral icterus, mucous membranes moist, TMs normal bilaterally, throat clear, neck supple, nontender, trachea midline. No drooling or trismus noted. No meningeal signs. No hot potato voice noted. Lungs: Clear to auscultation bilaterally. No wheezes, rales, or rhonchi. Chest nontender. Normal work of breathing, no accessory muscles used. Heart: S1S2, regular rate and rhythm without overt murmur, gallops, or rubs. No JVD. No peripheral edema Abdomen: Soft, nondistended, nontender. Normoactive bowel sounds. Negative for masses or costovertebral tenderness. Pelvis: Stable. Right hip tender. No erythema or edema noted. Skin: Intact, warm, dry. No lesions or rashes noted. Hematologic: No petechiae or purpra. Mucosa appropriate color and normal nail bed color and refill. Extremities: Atraumatic, moves all extremities per self without difficulty or deficits, negative for cords or calf pain. Neurovascular unremarkable. Neuro: Awake, alert, oriented. Cranial nerves II through XII unremarkable. Cerebellum unremarkable. Motor and sensory unremarkable throughout. Exam nonfocal. Psychiatric: Mood and affect are appropriate. Notes: *This patient was seen and evaluated during the 2019 SARS-CoV-2 novel coronavirus pandemic period. Community viral transmission is ongoing at time of this encounter and the emergency department is operating under pandemic response procedures. As stated above the patient presents to the emergency department with chronic right hip pain but classifies it as more severe today. The patient has a history of dementia and denies any kind of recent fall. I have ordered a hip x- ray, urine, and blood work. The patient is agreeable with the plan. Right hip x-ray impression per radiologist: Right total hip arthroplasty without evidence of hardware failure or acute osseous abnormality. UA is negative for infection. CMP is unremarkable. CBC is unremarkable. The patient was informed of the test results and states that her pain is better after the oxycodone. I suggested the patient talk to her primary care about her gabapentin for chronic pain. The patient and her friend are agreeable with the discharge plan. I have talked with the patient about today's findings, in addition to providing specific details for plan of care. Reassessment at the time of disposition demonstrates that the patient is in no acute distress. The patient is stable for discharge, counseling was provided and we discussed in great detail signs and symptoms that would prompt them to return to the Emergency Department. Medication, follow up and supportive care measures were reviewed and discussed. Voices understanding and is agreeable to plan of care. Denies any further questions or concerns at this time. Diagnostics: CBC, CMP, UA, right hip x-ray Therapeutics: Oxycodone 2.5 p.o. Impression: Right hip pain Plan: 1. You were evaluated today on an emergent basis. Your pains of right hip pain were evaluated with lab work which was within normal limits, a urinalysis which was negative for infection and a right hip x-ray which was read as normal. As you do not react well to narcotics I would suggest talking to your primary care provider about increasing your gabapentin which can help chronic pain. Sometimes it can make you drowsy so increase your evening dose first if they allow it. If you continue to have pain you might need an MRI which can be done through your primary care provider. Also you do have a as needed pain medication and just need to ask for it when you are in pain. 2. You can alternate Tylenol and ibuprofen as needed for pain and fever management. 3. We encourage you to follow up with your primary care provider and/or recommended specialist in the next few days for re-evaluation and further care/management. 4. If your symptoms should worsen, new symptoms develop or any of the signs and symptoms we discussed should arise please return to the emergency room or call 911 (if needed). Definitive disposition and diagnosis as appropriate pending reevaluation and review of above. Right Hip Pain Score (Numeric/FACES): 8 - Related Data Allergies Allergy/AdvReac Type Severity Reaction Status Date / Time acetaminophen [From [place]] Allergy Agitation Verified 10/14/20 15:10 cefaclor [Cefaclor] Allergy Rash Verified 10/14/20 15:10 celecoxib [From Celebrex] Allergy Rash Verified 10/14/20 15:10 hydrocodone bitartrate Allergy Agitation Verified 10/14/20 15:10 [From [place]] levofloxacin Allergy Other Verified 10/14/20 15:10 sulfadiazine Allergy Other Verified 10/14/20 15:10 tramadol Allergy Hallucinati Verified 10/14/20 15:10 ons Home Meds: Home Meds Metoprolol Tartrate 25 mg PO DAILY 05/15/14 [History] Potassium Chloride 10 meq PO DAILY 05/15/14 [History] Acetaminophen [Tylenol] 500 mg PO Q6H PRN 01/18/20 [History] Albuterol [Proair HFA] 2 puff INH Q4HR PRN 01/18/20 [History] Carboxymethylcellulose Sodium [Artificial Tears] 1 drop EYEBOTH Q6H PRN 01/18/20 [History] Cyanocobalamin (Vitamin B12) [Vitamin B12] 1,000 mcg PO DAILY 01/18/20 [History] Donepezil HCl 10 mg PO BEDTIME 01/18/20 [History] FLUoxetine HCl [Prozac] 20 mg PO DAILY 01/18/20 [History] Loperamide HCl [Imodium A-D] 2 mg PO DAILY PRN MDD 8MG 01/18/20 [History] Mag Hydrox/Aluminum Hyd/Simeth [Maalox Maximum Strength Susp] 30 ml PO Q6H PRN 01/18/20 [History] Magnesium Hydroxide [Milk of Magnesia] 30 ml PO DAILY PRN 01/18/20 [History] Multivitamin [Poly-Vitamin] 2 each PO DAILY 01/18/20 [History] Omeprazole 40 mg PO ACBREAKFAST 01/18/20 [History] Rosuvastatin Calcium 5 mg PO .WED 01/18/20 [History] guaiFENesin 5 ml PO Q4H PRN 01/18/20 [History] hydroCHLOROthiazide [Hydrochlorothiazide] 25 mg PO DAILY 01/18/20 [History] Past Medical History HEENT History: Reports: Hard of Hearing, Impaired Vision Other HEENT History: wears glasses, has bilateral hearing aides Cardiovascular History: Reports: High Cholesterol, Hypertension Respiratory History: Reports: Bronchitis, Recurrent, COPD Gastrointestinal History: Reports: None Genitourinary History: Reports: None SPECIAL INVESTIGATOR 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 Spinal stenosis. Psychiatric History: Reports: None Endocrine/Metabolic History: Reports: Osteoporosis Hematologic History: Reports: None Immunologic History: Reports: None Oncologic (Cancer) History: Reports: Breast Dermatologic History: Reports: None - Infectious Disease History Infectious Disease History: Reports: Measles - Past Surgical History Head Surgeries/Procedures: Reports: None HEENT Surgical History: Reports: Cataract Surgery Respiratory Surgical History: Reports: Other (See Below) GI Surgical History: Reports: None Female Surgical History: Reports: Hysterectomy Other Female Surgeries/Procedures: right breast lumpectomy Endocrine Surgical History: Reports: None Neurological Surgical History: Reports: Spinal Fusion Musculoskeletal Surgical History: Reports: Hip Replacement Oncologic Surgical History: Reports: Lumpectomy Social & Family History - Family History Family Medical History: No Pertinent Family History Cardiac: Reports: Hypertension Oncologic: Reports: Other (See Below) Other Oncologic Family History: brother, type unknown - Caffeine Use Caffeine Use: Reports: Coffee Review of Systems - Review of Systems Review Of Systems: Comprehensive ROS is negative, except as noted in HPI. ED EXAM, GENERAL - Physical Exam Exam: See Below (See Dictation) Course - Vital Signs Last Recorded V/S: Last Vital Signs Temp 97.4 F 10/14/20 14:11 Pulse 69 10/14/20 16:38 Resp 16 10/14/20 16:38 BP 165/65 H 10/14/20 16:38 Pulse Ox 97 10/14/20 16:38 - Orders/Labs/Meds Labs: Laboratory Tests 10/14/20 10/14/20 10/14/20 Range/Units 15:22 15:27 15:27 WBC 8.80 (4.0-11.0) K/uL RBC 4.11 L (4.30-5.90) M/uL Hgb 12.9 (12.0-16.0) g/dL Hct 40.4 (36.0-46.0) % MCV 98.3 H (80.0-98.0) fL MCH 31.4 (27.0-32.0) pg MCHC 31.9 (31.0-37.0) g/dL RDW Std Deviation 46.0 (28.0-62.0) fl RDW Coeff of [place] 13 (11.0-15.0) % Plt Count 333 (150-400) K/uL MPV 9.20 (7.40-12.00) fL Neut % (Auto) 79.1 (48.0-80.0) % Lymph % (Auto) 15.0 L (16.0-40.0) % [place] % (Auto) 5.2 (0.0-15.0) % Eos % (Auto) 0.5 (0.0-7.0) % Baso % (Auto) 0.2 (0.0-1.5) % Neut # (Auto) 7.0 H (1.4-5.7) K/uL Lymph # (Auto) 1.3 (0.6-2.4) K/uL [place] # (Auto) 0.5 (0.0-0.8) K/uL Eos # (Auto) 0.0 (0.0-0.7) K/uL Baso # (Auto) 0.0 (0.0-0.1) K/uL Nucleated RBC % 0.0 /100WBC Nucleated RBCs # 0 K/uL Sodium 136 (136-145) mmol/L Potassium 4.2 (3.5-5.1) mmol/L Chloride 100 (98-107) mmol/L Carbon Dioxide 25.4 (21.0-32.0) mmol/L BUN 21 H (7.0-18.0) mg/dL Creatinine 1.0 (0.6-1.0) mg/dL Est Cr Clr Drug Dosing 36.16 mL/min Estimated GFR (MDRD) 52.8 ml/min Glucose 103 (74-106) mg/dL Calcium 9.0 (8.5-10.1) mg/dL Total Bilirubin 0.3 (0.2-1.0) mg/dL AST 21 (15-37) IU/L ALT 19 (14-63) IU/L Alkaline Phosphatase 66 (46-116) U/L Total Protein 7.6 (6.4-8.2) g/dL Albumin 3.9 (3.4-5.0) g/dL Globulin 3.7 (2.6-4.0) g/dL Albumin/Globulin Ratio 1.1 (0.9-1.6) Urine Color YELLOW Urine Appearance CLEAR Urine pH 7.0 (5.0-8.0) Ur Specific [place] 1.010 (1.001-1.035) Urine Protein NEGATIVE (NEGATIVE) mg/dL Urine Glucose (UA) NEGATIVE (NEGATIVE) mg/dL Urine Ketones NEGATIVE (NEGATIVE) mg/dL Urine Occult Blood NEGATIVE (NEGATIVE) Urine Nitrite NEGATIVE (NEGATIVE) Urine Bilirubin NEGATIVE (NEGATIVE) Urine Urobilinogen 0.2 (<2.0) EU/dL Ur Leukocyte Esterase NEGATIVE (NEGATIVE) Meds: Medications Discontinued Medications Generic Name Dose Route Start Last Admin Trade Name Freq PRN Reason Stop Dose Admin Oxycodone HCl 2.5 mg 10/14/20 15:06 10/14/20 15:25 Oxycodone 5 Mg Tab PO 10/14/20 15:07 2.5 mg ONETIME STA Administration Departure - Departure Time of Disposition: 16:26 Disposition: Home, Self-Care 01 Condition: Good Clinical Impression: Hip pain - Discharge Information *PRESCRIPTION DRUG MONITORING PROGRAM REVIEWED*: Not Applicable *COPY OF PRESCRIPTION DRUG MONITORING REPORT IN PATIENT CHUNG: Not Applicable Instructions: Hip Pain Referrals: Juan C Weir MD [Primary Care Provider] - Forms: ED Department Discharge Additional Instructions: The following information is given to patients seen in the emergency department who are being discharged to home. This information is to outline your options for follow-up care. We provide all patients seen in our emergency department with a follow-up referral. The need for follow-up, as well as the timing and circumstances, are variable depending upon the specifics of your emergency department visit. If you don't have a primary care physician on staff, we will provide you with a referral. We always advise you to contact your personal physician following an emergency department visit to inform them of the circumstance of the visit and for follow-up with them and/or the need for any referrals to a consulting specia list. The emergency department will also refer you to a specialist when appropriate. This referral assures that you have the opportunity for follow-up care with a specialist. All of these measure are taken in an effort to provide you with optimal care, which includes your follow-up. Under all circumstances we always encourage you to contact your private physician who remains a resource for coordinating your care. When calling for follow-up care, please make the office aware that this follow-up is from your recent emergency room visit. If for any reason you are refused follow-up, please contact the [facility] Emergency Department at and asked to speak to the emergency department charge nurse. [facility] [address] [place] [address] [id number] [address] [address] Plan: 1. You were evaluated today on an emergent basis. Your pains of right hip pain were evaluated with lab work which was within normal limits, a urinalysis which was negative for infection and a right hip x-ray which was read as normal. As you do not react well to narcotics I would suggest talking to your primary care provider about increasing your gabapentin which can help chronic pain. Sometimes it can make you drowsy so increase your evening dose first if they allow it. If you continue to have pain you might need an MRI which can be done through your primary care provider. Also you do have a as needed pain medication and just need to ask for it when you are in pain. 2. You can alternate Tylenol and ibuprofen as needed for pain and fever management. 3. We encourage you to follow up with your primary care provider and/or recommended specialist in the next few days for re-evaluation and further care/management. 4. If your symptoms should worsen, new symptoms develop or any of the signs and symptoms we discussed should arise please return to the emergency room or call 911 (if needed). Sepsis Event Note (ED) - Evaluation Sepsis Screening Result: No Definite Risk - Focused Exam Vital Signs: Vital Signs Temp Pulse Resp BP Pulse Ox 10/14/20 16:38 69 16 165/65 H 97 10/14/20 14:11 97.4 F 83 16 134/72 95
[2020-10-14] MEDS ORDERED: oxyCODONE 5 MG Tab PO STA (15:06)
--- NOTE | 2020-10-14 15:06 | CR ---
For Patients: As a result of the Cures Act, medical imaging exams and procedure reports are released immediately into your electronic medical record. You may view this report before your referring provider. If you have questions, please contact your health care provider. INDICATION: Pain without fall TECHNIQUE: Single view pelvis with AP and Frogleg views right hip COMPARISONS: None available. FINDINGS: There is demonstration of a right total hip arthroplasty without evidence of hardware failure. There is no displaced fracture, dislocation or acute osseous abnormality. Degenerative change of the partially visualized sacroiliac joints are noted. The soft tissues are unremarkable. IMPRESSION: Right total hip arthroplasty without evidence of hardware failure or acute osseous abnormality. Dictated by Saman Gonsalez MD @ 10/14/2020 3:05:[address] Saman Gonsalez @ Oct 14 2020 3:05PM
[2020-10-14 16:03] LABS: CARBON DIOXIDE,CO2 25.4 mmol/L (21.0-32.0); POTASSIUM,K 4.2 mmol/L (3.5-5.1)
[2020-10-14 16:39] VITALS: BP 165/65; PULSE 69
== END 2020-10-14 16:39 | disposition home or self-care (01) ==
LOC: MW.ED 13:43
DX: M25.551 Pain in right hip (principal); I10 Essential (primary) hypertension; Z88.1 Allergy status to other antibiotic agents; Z88.5 Allergy status to narcotic agent; Z88.8 Allergy status to other drugs, medicaments and biological substances; Z88.6 Allergy status to analgesic agent
CPT/HCPCS: 36415; 73502; 80053; 81003; 85025; 99283; A9270

== ENCOUNTER 2021-10-06 10:47 | Emergency (ER) | payer MEDICARE, OTHER ==
[2021-10-06 12:06] LABS: BLOOD UREA NITROGEN,BUN 28 mg/dL (7.0-18.0); CARBON DIOXIDE,CO2 28.3 mmol/L (21.0-32.0); CHLORIDE,CL 102 mmol/L (98-107); GLUCOSE RANDOM 95 mg/dL (74-106); POTASSIUM,K 3.8 mmol/L (3.5-5.1); SODIUM,NA 137 mmol/L (136-145)
[2021-10-06 13:50] VITALS: BP 146/55; PULSE 63
== END 2021-10-06 13:48 | disposition home or self-care (01) ==
LOC: MW.ED 10:47
DX: M79.604 Pain in right leg (principal); N28.9 Disorder of kidney and ureter, unspecified; E78.00 Pure hypercholesterolemia, unspecified; I10 Essential (primary) hypertension; J44.9 Chronic obstructive pulmonary disease, unspecified; Z88.5 Allergy status to narcotic agent; Z88.8 Allergy status to other drugs, medicaments and biological substances; Z79.899 Other long term (current) drug therapy; Z20.822 Contact with and (suspected) exposure to COVID-19
CPT/HCPCS: 36415; 70450; 70450-26; 72125; 72125-26; 72170; 72170-26; 735622650; 73562-50; 73610-26-RT; 73610-RT; 80053; 85025; 85610; 93005; 99285-25; U0002

== ENCOUNTER 2021-12-13 08:20 | Inpatient (IN) | payer MEDICARE, OTHER ==
[2021-12-13] MEDS ORDERED: Sodium Chloride 0.9% 500 ML IV ONE ×2 (08:27→10:22)
[2021-12-13] MEDS ORDERED: fentaNYL 50 MCG/ML SDV IVPUSH ONE (08:27)
[2021-12-13] MEDS ORDERED: Diphtheria,Pertussis(Acell),Tetanus Vaccine 0.5 ML Syringe IM ONE (08:32)
[2021-12-13 09:19] LABS: BLOOD UREA NITROGEN,BUN 27 mg/dL (7.0-18.0); CARBON DIOXIDE,CO2 25.4 mmol/L (21.0-32.0); CHLORIDE,CL 103 mmol/L (98-107); ESTIMATED GFR 49 mL/min (>60); GLUCOSE RANDOM 117 mg/dL (74-106); SODIUM,NA 138 mmol/L (136-145)
[2021-12-13] MEDS ORDERED: Lidocaine 1% with EPINEPHrine 1:100,000 10 ML MDV INJECT ONE (09:57)
[2021-12-13] MEDS ORDERED: Potassium Chloride 10% 20 MEQ/15 ML Soln 30 ML UD Cup PO ONE (10:23)
[2021-12-13] MEDS ORDERED: Docusate Sodium 100 MG Cap PO PRN (13:41)
[2021-12-13] MEDS ORDERED: Ondansetron 4 MG/2 ML SDV IVPUSH PRN (13:41)
[2021-12-13] MEDS ORDERED: Sodium Chloride 0.9% 2.5 ML Syringe FLUSH PRN (13:41)
[2021-12-13] MEDS ORDERED: Sodium Chloride 0.9% 10 ML Syringe FLUSH PRN (13:41)
[2021-12-13] MEDS ORDERED: LORazepam 2 MG/ML SDV IM ONE (13:50)
[2021-12-13] MEDS ORDERED: Lactated Ringers 1,000 ML IV SCH (14:00)
[2021-12-13] MEDS ORDERED: Acetaminophen 325 MG Tab PO PRN (15:07)
[2021-12-13] MEDS ORDERED: Albuterol 0.083% 2.5 MG/3 ML Neb Soln NEB PRN (15:17)
[2021-12-13] MEDS: Lactated Ringers 1,000 ML IV SCH (15:26)
[2021-12-13] MEDS ORDERED: oxyCODONE 5 MG Tab PO PRN (15:37)
[2021-12-13] MEDS: Potassium Chloride 100 ML IV SCH ×2 (16:28→18:39)
[2021-12-13] MEDS: Metoprolol Succinate 25 MG Tab.ER PO SCH (16:28)
[2021-12-13] MEDS: Morphine 2 MG/ML SYRINGE IVPUSH PRN (18:38)
[2021-12-13] MEDS: Donepezil 10 MG Tab PO SCH (21:24)
[2021-12-13] MEDS: Gabapentin 100 MG Cap PO SCH (21:24)
[2021-12-13] MEDS ORDERED: Glucagon,Human Recombinant 1 MG Vial IM PRN (23:09)
[2021-12-13] MEDS ORDERED: 50% Dextrose in Water 50 ML Syringe IVPUSH PRN (23:09)
[2021-12-14] MEDS: Lactated Ringers 1,000 ML IV SCH ×4 (05:24→20:39)
[2021-12-14 06:51] LABS: BLOOD UREA NITROGEN,BUN 24 mg/dL (7.0-18.0); CARBON DIOXIDE,CO2 19.5 mmol/L (21.0-32.0); CHLORIDE,CL 104 mmol/L (98-107); ESTIMATED GFR 72 mL/min (>60); GLUCOSE RANDOM 143 mg/dL (74-106); POTASSIUM,K 3.8 mmol/L (3.5-5.1); SODIUM,NA 140 mmol/L (136-145)
[2021-12-14] MEDS: Morphine 2 MG/ML SYRINGE IVPUSH PRN ×2 (09:09→14:05)
[2021-12-14] MEDS: Gabapentin 100 MG Cap PO SCH ×2 (09:09→20:39)
[2021-12-14] MEDS: Metoprolol Succinate 25 MG Tab.ER PO SCH (09:09)
[2021-12-14] MEDS: Heparin Sodium 5,000 Units/ML Vial SUBCUT SCH ×2 (09:10→20:38)
[2021-12-14] MEDS: Insulin Aspart 100 Units/ML 3 ML Pen SUBCUT SCH ×3 (10:56→17:17)
[2021-12-14] MEDS: Donepezil 10 MG Tab PO SCH (20:38)
[2021-12-15] MEDS: Lactated Ringers 1,000 ML IV SCH ×2 (01:58→05:07)
[2021-12-15] MEDS: Morphine 2 MG/ML SYRINGE IVPUSH PRN ×3 (02:12→22:46)
[2021-12-15 07:57] LABS: BLOOD UREA NITROGEN,BUN 31 mg/dL (7.0-18.0); CARBON DIOXIDE,CO2 16.7 mmol/L (21.0-32.0); CHLORIDE,CL 103 mmol/L (98-107); GLUCOSE RANDOM 235 mg/dL (74-106); POTASSIUM,K 5.1 mmol/L (3.5-5.1); SODIUM,NA 139 mmol/L (136-145)
[2021-12-15 08:01] LABS: ESTIMATED GFR 63 mL/min (>60)
[2021-12-15] MEDS ORDERED: Dexamethasone 4 MG/ML SDV IVPUSH SCH (09:00)
[2021-12-15] MEDS ORDERED: REMDESIVIR 200 MG in Sodium Chloride 0.9% 250 ML IV ONE (09:00)
[2021-12-15] MEDS ORDERED: Lactated Ringers 1,000 ML IV ONE (09:18)
[2021-12-15] MEDS: Gabapentin 100 MG Cap PO SCH ×2 (09:27→22:46)
[2021-12-15] MEDS: Metoprolol Succinate 25 MG Tab.ER PO SCH (09:28)
[2021-12-15] MEDS: Insulin Aspart 100 Units/ML 3 ML Pen SUBCUT SCH ×2 (09:29→13:13)
[2021-12-15] MEDS: Heparin Sodium 5,000 Units/ML Vial SUBCUT SCH (09:30)
[2021-12-15] MEDS ORDERED: LORazepam 2 MG/ML SDV IVPUSH PRN (15:11)
[2021-12-15] MEDS ORDERED: Aluminum Hydroxide/Magnesium Hydroxide/Simethicone XS Susp 30 ML Cup PO PRN (16:05)
[2021-12-15] MEDS ORDERED: Carboxymethylcellulose Sodium 0.5% Ophth Soln 0.4 ML UD Box of 30 EYEBOTH PRN (16:05)
[2021-12-16] MEDS ORDERED: Lactated Ringers 1,000 ML IV SCH (01:00)
[2021-12-16] MEDS: Morphine 2 MG/ML SYRINGE IVPUSH PRN ×3 (03:20→10:58)
[2021-12-16] MEDS ORDERED: REMDESIVIR 100 MG in Sodium Chloride 0.9% 100 ML IV SCH (09:00)
[2021-12-16] MEDS ORDERED: Atropine 1% Ophth Soln 5 ML BOTTLE SL PRN (11:11)
[2021-12-16] MEDS: Morphine 10 MG/0.5 ML Oral Syringe PO PRN ×5 (12:19→21:18)
[2021-12-16] MEDS: LORazepam ORAL Concentrate 1MG/0.5ML U/D SL PRN ×2 (13:57→21:31)
[2021-12-17] MEDS: Morphine 10 MG/0.5 ML Oral Syringe PO PRN ×8 (00:45→22:53)
[2021-12-17] MEDS: LORazepam ORAL Concentrate 1MG/0.5ML U/D SL PRN ×4 (04:24→17:08)
[2021-12-18] MEDS: Morphine 10 MG/0.5 ML Oral Syringe PO PRN ×5 (04:56→16:10)
[2021-12-18 08:29] VITALS: BP 155/108; PULSE 119
[2021-12-18] MEDS: LORazepam ORAL Concentrate 1MG/0.5ML U/D SL PRN ×3 (08:30→13:38)
== END 2021-12-18 20:13 | disposition expired | DRG 177 ==
LOC: MW.ED 08:20 → MW.MS 12:10
PROVIDERS: ADMIT Student in an Organized Health Care Education/Training Program; ATTEND Student in an Organized Health Care Education/Training Program
PROC: 0HQ1XZZ Repair Face Skin, External Approach (ICD-10-PCS; 2021-12-13)
PROC: XW033E5 Introduction of Remdesivir Anti-infective into Peripheral Vein, Percutaneous Approach, New Technology Group 5 (ICD-10-PCS; principal; 2021-12-15)
PROC: 3E0333Z Introduction of Anti-inflammatory into Peripheral Vein, Percutaneous Approach (ICD-10-PCS; 2021-12-15)
DX: U07.1 COVID-19 (principal); I21.4 Non-ST elevation (NSTEMI) myocardial infarction; S12.601A Unspecified nondisplaced fracture of seventh cervical vertebra, initial encounter for closed fracture; N17.9 Acute kidney failure, unspecified; S32.020A Wedge compression fracture of second lumbar vertebra, initial encounter for closed fracture; S22.41XA Multiple fractures of ribs, right side, initial encounter for closed fracture; F02.81 Dementia in other diseases classified elsewhere, unspecified severity, with behavioral disturbance; T79.6XXA Traumatic ischemia of muscle, initial encounter; J44.9 Chronic obstructive pulmonary disease, unspecified; E87.6 Hypokalemia; F02.80 Dementia in other diseases classified elsewhere, unspecified severity, without behavioral disturbance, psychotic disturbance, mood disturbance, and anxiety; Z66 Do not resuscitate; Z51.5 Encounter for palliative care; S02.2XXA Fracture of nasal bones, initial encounter for closed fracture; J41.0 Simple chronic bronchitis; F32.9 Major depressive disorder, single episode, unspecified; M25.511 Pain in right shoulder; M25.512 Pain in left shoulder; M54.2 Cervicalgia; G89.29 Other chronic pain; M48.061 Spinal stenosis, lumbar region without neurogenic claudication; R91.8 Other nonspecific abnormal finding of lung field; S32.020G Wedge compression fracture of second lumbar vertebra, subsequent encounter for fracture with delayed healing; S01.81XA Laceration without foreign body of other part of head, initial encounter; M54.9 Dorsalgia, unspecified; I10 Essential (primary) hypertension; G30.9 Alzheimer's disease, unspecified; E11.9 Type 2 diabetes mellitus without complications; E78.00 Pure hypercholesterolemia, unspecified; H54.7 Unspecified visual loss; M81.0 Age-related osteoporosis without current pathological fracture; M71.9 Bursopathy, unspecified; H91.93 Unspecified hearing loss, bilateral; G25.3 Myoclonus; Z98.49 Cataract extraction status, unspecified eye; Z88.1 Allergy status to other antibiotic agents; Z88.5 Allergy status to narcotic agent; Z88.2 Allergy status to sulfonamides; Z85.3 Personal history of malignant neoplasm of breast; Z88.8 Allergy status to other drugs, medicaments and biological substances; Z79.899 Other long term (current) drug therapy; Z90.710 Acquired absence of both cervix and uterus; Z98.1 Arthrodesis status; Z98.890 Other specified postprocedural states; W19.XXXA Unspecified fall, initial encounter
CPT/HCPCS: 36415; 70450; 71250; 72125; 73562; 74176; 80053; 81003; 82550; 83735; 84484; 85025; 85610; 85730; 90715; 93005; A9270; J3010; J7030 ×2; U0002; 12013; 71045; 71045-26; 72128-26; 72131-26; 80048; 82947; 83605; 93010; 99223; 99231; 99233; 99238; 99285; J1100; J1644; J1815-GY; J2060; J2270; J3480; J7050; J7120